=== PATIENT | male | born 1975 | race American Indian/Alaskan Native ===

== ENCOUNTER 2017-12-06 21:22 | Inpatient (IN) | payer BC ==
--- NOTE | 2017-12-06 21:48 | C.PDOC ---
History Of Present Illness The patient presents to the ED requesting alcohol detox. Patient states his last drink was around two hours prior to arrival. He denies suicidal/homicidal ideation and has no other complaints at this time. Time Seen by Provider: 12/06/17 21:48 Chief Complaint (Nursing): Substance Abuse History Per: Patient History/Exam Limitations: intoxication Onset/Duration Of Symptoms: Hrs Current Symptoms Are (Timing): Still Present Suicide/Self Injury Attempted (Context): None Modifying Factor(s): Alcohol Severity: None Pain Scale Rating Of: 0 Associated Symptoms: denies: Suicidal Thoughts, Suicidal Plan Involuntary Hold By: None Recent travel outside of the [place]: No Additional History Per: Patient Past Medical History Reviewed: Historical Data, Nursing Documentation, Vital Signs Vital Signs: Last Vital Signs Temp 97.8 F 12/06/17 21:29 Pulse 104 H 12/06/17 21:29 Resp 18 12/06/17 21:29 BP 161/96 H 12/06/17 21:29 Pulse Ox 98 12/06/17 22:33 - Medical History PMH: HTN Denies: Chronic Kidney Disease Surgical History: No Surg Hx Family History: States: Unknown Family Hx - Social History Hx Alcohol Use: Yes (ONE PT PER DAY) Hx Substance Use: No - Immunization History Hx Tetanus Toxoid Vaccination: No Hx Influenza Vaccination: No Hx Pneumococcal Vaccination: No Review Of Systems Constitutional: Negative for: Fever, Chills Cardiovascular: Negative for: Chest Pain, Orthopnea Respiratory: Negative for: Cough, Shortness of Breath Gastrointestinal: Negative for: Nausea, Vomiting, Abdominal Pain Skin: Negative for: Rash, Lesions, Jaundice, Bruising Neurological: Negative for: Weakness Psych: Positive for: Other (alcohol detox ). Negative for: Suicidal ideation Physical Exam - Physical Exam Appears: Non-toxic, No Acute Distress Skin: Warm, Dry Head: Normacephalic Eye(s): bilateral: Normal Inspection Oral Mucosa: Moist, Other (alcohol on breath ) Neck: Supple Chest: Symmetrical, No Deformity, No Tenderness Cardiovascular: Rhythm Regular, No Murmur Respiratory: No Rales, No Rhonchi, No Wheezing Gastrointestinal/Abdominal: Soft, No Tenderness Back: Normal Inspection Extremity: Normal ROM, Capillary Refill (less than 2 seconds ) Extremity: Bilateral: Atraumatic Neurological/Psych: Oriented x3 Gait: Steady ED Course And Treatment - Laboratory Results Result Diagrams: 12/06/17 22:09 12/06/17 22:09 O2 Sat by Pulse Oximetry: 98 (on RA) Pulse Ox Interpretation: Normal Progress Note: Bloodwork and urinalysis ordered and reviewed. Disposition Discussed With Dr.: Lucita Mcdonough Comment: accepted the pt on her service and took over the care at 12:40 AM Doctor Will See Patient In The: Hospital Counseled Patient/Family Regarding: Studies Performed, Diagnosis - Disposition Disposition: HOSPITALIZED Disposition Time: 21:48 Condition: FAIR Forms: [employer] (Kiswahili) - Clinical Impression Clinical Impression: Alcohol intoxication - Scribe Statement The provider has reviewed the documentation as recorded by the Scribe (Sophie Kim) Provider Attestation: All medical record entries made by the Scribe were at my direction and personally dictated by me. I have reviewed the chart and agree that the record accurately reflects my personal performance of the history, physical exam, medical decision making, and the department course for this patient. I have also personally directed, reviewed, and agree with the discharge instructions and disposition. Decision To Admit - Pt Status Changed To: Hospital Disposition Of: Inpatient - Admit Certification Admit to Inpatient:: After my assessment, the patient will require hospitalization for at least two midnights. This is because of the severity of symptoms shown, intensity of services needed, and/or the medical risk in this patient being treated as an outpatient. - InPatient: Physician Admission Certification: I certify that this patient requires 2 or more midnights of care for the following reason:: After my assessment, the patient will require hospitalization for at least two midnights. This is because of the severity of symptoms shown, intensity of services needed, and/or the medical risk in this patient being treated as an outpatient. - . Bed Request Type: Detox Admitting Physician: Lucita Mcdonough Patient Diagnosis: Alcohol intoxication
[2017-12-06 22:13] LABS: BASO # 0.1 K/uL (0.0-0.2); EOS # 0.2 K/uL (0.0-0.7); EOS % 2.6 % (0.0-4.0); HEMOGLOBIN 15.1 g/dL (12.0-18.0); LYMPH # 3.2 K/uL (1.0-4.3); LYMPH % 37.6 % (20.0-40.0); MEAN CELL VOLUME 88.7 fL (80.0-94.0); MEAN CORPUSCULAR HEMOGLOBIN 30.3 pg (27.0-31.0); MEAN CORPUSCULAR HGB CONC 34.2 g/dL (33.0-37.0); MEAN PLATELET VOLUME 7.9 fL (7.2-11.7); MONO # 0.6 K/uL (0.0-0.8); MONO % 6.9 % (0.0-10.0); NEUT # 4.5 K/uL (1.8-7.0); NEUT % 51.9 % (50.0-75.0); NRBC % 0.1 % (0.0-2.0); RBC 4.99 Mil/uL (4.40-5.90); RED CELL DISTRIBUTION WIDTH 16.2 % (11.5-14.5); WHITE BLOOD COUNT 8.6 K/uL (4.8-10.8)
[2017-12-06 22:25] LABS: ALB/GLOB RATIO 1.2 (1.0-2.1); ALBUMIN 4.2 g/dL (3.5-5.0); ALT/SGPT 96 U/L (21-72); AST/SGOT 79 U/L (17-59); BLOOD UREA NITROGEN 10 mg/dL (9-20); CALCIUM 9.2 mg/dl (8.6-10.4); GFR AFRICAN-AMERICAN > 60; GFR NON-AFRICAN AMERICAN > 60
[2017-12-06 23:13] LABS: URINE BILIRUBIN NEGATIVE (NEGATIVE); URINE CLARITY Clear (Clear); URINE COLOR Straw (YELLOW); URINE GLUCOSE (UA) NORMAL (Normal); URINE LEUKOCYTE ESTERASE NEG Leu/uL (Negative); URINE PROTEIN 1+ mg/dL (NEGATIVE); URINE UROBILINOGEN NORMAL mg/dL (0.2-1.0)
[2017-12-06 23:18] LABS: URINE BLOOD NEGATIVE (NEGATIVE)
[2017-12-06 23:24] LABS: BARBITURATES, UR NEGATIVE (NEGATIVE); OPIATES, UR NEGATIVE (NEGATIVE); PHENCYCLIDINE, UR NEGATIVE (NEGATIVE)
[2017-12-06 23:25] LABS: BENZODIAZEPINES, UR POSITIVE (NEGATIVE)
--- NOTE | 2017-12-07 01:08 | PCM.BM ---
<Juliet Brizuela M - Last Filed: 12/07/17 01:07> Treatment Plan Problems - Problems identified on initial assessmt Ineffective Coping Skills Date Initiated: 12/07/17 Time Initiated: 01:07 Assessment reference: NA Status: Active Treatment assets and liabiliti Patient Assests: ADL independent Patient Liabilities: substance abuse - Milieu Protocol Maintain good personal hygiene: daily Encourage regular showers, daily Remind patient to perform daily oral care, other Assist patient to perform ADL's Maintain personal safety: every shift Educate patient to report safety concerns to staff, every shift Monitor environment for contraband/sharps Medication safety: Monitor for expected outcome, potential side effects: every shift, Assess barriers to learning: every shift, Assess readiness for medication education: every shift <Yong Neal - Last Filed: 12/08/17 13:06> - Diagnosis (1) Alcohol use disorder, severe, dependence Status: Acute Interventions: 12/08/17 13:06 * Assess 7x/week regarding severity of withdrawal * Educate regarding risks, benefits, side effects and alternatives of medications * Use Motivational Interviewing for abstinence * Use CBT for relapse prevention * Medication management for withdrawal symptoms * Encourage medication assisted treatment *
[2017-12-07] MEDS: Multiple Vitamins Tab PO SCH (10:13)
--- NOTE | 2017-12-07 12:49 | PCM.BM ---
Treatment Plan Problems - Problems identified on initial assessmt Ineffective Coping Skills Date Initiated: 12/07/17 Time Initiated: 01:07 Assessment reference: NA Status: Active Treatment assets and liabiliti Patient Assests: ADL independent Patient Liabilities: substance abuse - Milieu Protocol Maintain good personal hygiene: daily Encourage regular showers, daily Remind patient to perform daily oral care, other Assist patient to perform ADL's Maintain personal safety: every shift Educate patient to report safety concerns to staff, every shift Monitor environment for contraband/sharps Medication safety: Monitor for expected outcome, potential side effects: every shift, Assess barriers to learning: every shift, Assess readiness for medication education: every shift
--- NOTE | 2017-12-07 14:50 | PCM.PSYCH ---
Initial Psychiatric Evaluation - Initial Psychiatric Evaluation Type of Admission: Voluntary Legal Status: Capacity Chief Complaint (in patient's own words): "I want to stop drinking" History of Present Illness and Precipitating Events: Patient is seen, chart reviewed and case discussed. 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 The patient has three children. The patient states he wants to detox from alcohol. The patient began drinking when he was 13 years old, but was only a social drinker until his mid-thirties, when he began to drink 1 pint of Rum per day. This lasted for two years until he went to Detox. He was then sober for ten years until this past month, when he began to have marital troubles. He reports that he has been drinking 1 pint of Rum/ day for the past month. He reports that the longest time he has been sober was for the ten years. The patient denies drug use, but admits to occasionally smoking 5-6 cigarettes/day since his early twenties. Past Psych Hx: Denied Medical Hx: HTN Family Psych Hx: Denied Family Medical Hx: Father had alcohol use disorder Current Medications: Active Medications Generic Name Dose Route Start Last Admin Trade Name Freq PRN Reason Stop Dose Admin Amlodipine Besylate 5 mg 12/07/17 10:00 12/07/17 10:14 Norvasc PO 5 mg DAILY SY Administration Chlordiazepoxide 25 mg 12/07/17 09:45 Librium PO Q4H PRN Alcohol Withdrawal Chlordiazepoxide 25 mg 12/07/17 10:00 12/07/17 10:13 Librium PO 12/11/17 09:59 25 mg Q6H SY Administration Taper Clonidine HCl 0.1 mg 12/07/17 01:10 12/07/17 01:52 Catapres PO 0.1 mg Q6H PRN Administration Withdrawal Symptoms Clonidine HCl 0.1 mg 12/07/17 10:00 12/07/17 13:15 Catapres PO 0.1 mg TID SY Administration Folic Acid 1 mg 12/07/17 10:00 12/07/17 10:13 Folic Acid PO 1 mg DAILY SY Administration Hydrochlorothiazide 25 mg 12/07/17 10:00 12/07/17 10:14 Hydrodiuril PO 25 mg DAILY SY Administration Hydroxyzine HCl 25 mg 12/07/17 01:12 Atarax PO Q6H PRN Agitation Lorazepam 1 mg 12/07/17 01:11 12/07/17 01:52 Ativan PO 1 mg Q6H PRN Administration Alcohol Withdrawal Multivitamins 1 tab 12/07/17 10:00 12/07/17 10:13 Hexavitamin PO 1 tab DAILY SY Administration Thiamine HCl 100 mg 12/07/17 10:00 12/07/17 10:12 Vitamin B1 Tab PO 100 mg DAILY SY Administration Trazodone HCl 50 mg 12/07/17 01:12 Desyrel PO HS PRN Insomnia Past Psychiatric History - Past Psychiatric History Pertinent Medical Hx (Current Medical&Sleep Prob, Allergies): Allergies Allergy/AdvReac Type Severity Reaction Status Date / Time No Known Allergies Allergy Verified 12/06/17 21:39 amLODIPine [Norvasc] 5 mg PO DAILY 12/06/17 cloNIDine [clonidine HCl] 0.2 mg PO DAILY 12/06/17 hydroCHLOROthiazide [Hydrodiuril] 25 mg PO DAILY 12/06/17 Review of Systems - Psychiatric Psychiatric: Anxiety. absent: Hallucinations, Homicidal Ideation, Suicidal Ideation Mental Status Examination - Personal Presentation Personal Presentation: Looks stated age - Affect Affect: Broad - Motor Activity Motor Activity: Calm - Reliability in Providing Information Reliability in Providing Information: Good - Speech Speech: Organized - Mood Mood: Anxious - Formal Thought Process Formal Thought Process: No Impairment - Cognitive Functions Orientation: Person, Place, Situation, Time Sensorium: Alert Attention/Concentration: Attentive Estimate of Intelligence: Average Judgement: Intact, as evidence by: Insight regarding need for hospitalization Memory: Recent intact, as evidence by: Ability to recall events of the day, Remote intact, as evidenced by: Abilit to recall sig. life events - Risk Risk: Diminished functioning - Strength & Assets Inventory Strength & Assets Inventory: Cooperative DSM 5 DX - DSM 5 DSM 5 Diagnosis: Alcohol withdrawal Alcohol use disorder - Recommended/Plan of Treatment Treatment Recommendations and Plan of Treatment: Ativan Taper Gabapentin for augmentation if needed As needed medications All risks, benefits and alternatives of the meds discussed, and the pt agreed and understood. Attend groups and activities Supportive therapy and psychoeducation IN for abstinence CBT for relapse prevention Encourage MAT Refer to rehab or IOP, and self-help groups Smoking cessation with IN Nicotine patch if needed 34 min Projected ELOS: 4-5 days Prognosis: Good with treatment - Smoking Cessation Smoking Cessation Initiated: Yes
[2017-12-08] MEDS: Multiple Vitamins Tab PO SCH (09:04)
[2017-12-08 09:22] VITALS: BP 113/78; PULSE 66; RESP 19; TEMP 97.6; O2SAT 98
--- NOTE | 2017-12-08 10:19 | PCM.PYCHDC ---
Mental Status Examination - Mental Status Examination Orientation: Person, Place, Situation, Time Memory: Intact Mood: Neutral Affect: Constricted Speech: Appropriate Attention: WNL Concentration: WNL Association: WNL Fund of Knowledge: WNL Formal Thought Process: No Impairment Suicidal Ideation: No Current Homicidal Ideation?: No Discharge Summary - Discharge Note Reason for Hospitalization: Alcohol detox Consultations:: List each consultation separately and include: 1. Reason for request. 2. Findings. 3. Follow-up Summary of Hospital Course include:: 1. Description of specific treatment plan utilized for patients during their course of treatmen. 2. Summarize the time- course for resolution of acute symptoms and/or regressed behaviors. 3. Describe issues identified and worked on during hospitalization. 4. Describe medication utilized. 5. Describe medical problems identified and treated. 6. Reassessment of suicide risk Summary of Hospital Course: Patient is seen, chart reviewed and case discussed. 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 The patient has three children. The patient states he wants to detox from alcohol. The patient began drinking when he was 13 years old, but was only a social drinker until his mid-thirties, when he began to drink 1 pint of Rum per day. This lasted for two years until he went to Detox. He was then sober for ten years until this past month, when he began to have marital troubles. He reports that he has been drinking 1 pint of Rum/ day for the past month. He reports that the longest time he has been sober was for the ten years. The patient denies drug use, but admits to occasionally smoking 5-6 cigarettes/day since his early twenties. Past Psych Hx: Denied Medical Hx: HTN Family Psych Hx: Denied Family Medical Hx: Father had alcohol use disorder Hospital course: The pt was admitted and started on treatment with psychotherapy, support, psychoeducation and medications. ND and CBT used. The pt attended few groups and activities, as well as milieu therapy. All the risks and benefits of medications are discussed and the patient understood and agreed. He suddenly asked to leave today AMA. He is made aware of the risks by the news writer and our counselor Chuckie but he did not agree. He said "I've always done 2 -day detoxes, that's enough for me, I'll be alright, I have a job" - Final Diagnosis (DSM 5) Condition upon Discharge: FAIR DSM 5: Alcohol withdrawal Alcohol use disorder, severe Disposition: AGAINST MEDICAL ADVICE Follow-up Treatment Plan: Use relapse prevention skills Return to ER or call 911 if suicidal, homicidal or symptoms relapse. Stay away from stress, alcohol and drugs. See primary doctor regularly and get labs.
== END 2017-12-08 10:30 | disposition left against medical advice (07) | DRG 894 ==
LOC: C.ER 21:22 → C.7D 12-07 00:39
PROVIDERS: ADMIT Psychiatry & Neurology Psychiatry; ATTEND Psychiatry & Neurology Psychiatry
PROC: HZ2ZZZZ Detoxification Services for Substance Abuse Treatment (ICD-10-PCS; principal; 2017-12-07)
DX: F10.230 Alcohol dependence with withdrawal, uncomplicated (principal); F10.220 Alcohol dependence with intoxication, uncomplicated; Y90.7 Blood alcohol level of 200-239 mg/100 ml; F19.10 Other psychoactive substance abuse, uncomplicated; I10 Essential (primary) hypertension; F17.210 Nicotine dependence, cigarettes, uncomplicated

== ENCOUNTER 2018-03-09 18:09 | Inpatient (IN) | payer SELFPAY ==
--- NOTE | 2018-03-09 18:54 | C.PDOC ---
History Of Present Illness 42y male with history of hypertension, comes to ER stating he has been depressed x 7 days and is also requesting detox from alcohol. Patient otherwise denies any suicidal or homicidal ideation. He reports last alcohol use was at 9AM and he drank a pint of Bacardi. Patient has no medical complaints. Time Seen by Provider: 03/09/18 18:31 History Per: Patient History/Exam Limitations: no limitations Modifying Factor(s): Alcohol Associated Symptoms: Depression. denies: Suicidal Thoughts, Suicidal Plan Past Medical History Reviewed: Historical Data, Nursing Documentation, Vital Signs Vital Signs: Last Vital Signs Temp 98.6 F 03/09/18 18:50 Pulse 90 03/09/18 18:50 Resp 18 03/09/18 18:50 BP 151/87 H 03/09/18 18:50 Pulse Ox 98 03/09/18 23:21 - Medical History PMH: HTN Denies: Diabetes, Hepatitis, HIV, Chronic Kidney Disease, Seizures, Sexually Transmitted Disease Surgical History: No Surg Hx - [facility] DETOXIFICATION SERVICES FOR SUBSTANCE ABUSE TREATMENT (12/07/17) Family History: States: Unknown Family Hx - Social History Hx Alcohol Use: Yes Hx Substance Use: Yes - Immunization History Hx Tetanus Toxoid Vaccination: No Hx Influenza Vaccination: No Hx Pneumococcal Vaccination: No Review Of Systems Except As Marked, All Systems Reviewed And Found Negative. Constitutional: Negative for: Fever, Chills Cardiovascular: Negative for: Chest Pain Respiratory: Negative for: Shortness of Breath Gastrointestinal: Negative for: Abdominal Pain Psych: Positive for: Depression. Negative for: Suicidal ideation Physical Exam - Physical Exam Appears: Non-toxic Skin: Normal Color, Warm, Dry Head: Atraumatic, Normacephalic Eye(s): bilateral: Normal Inspection Oral Mucosa: Moist Neck: Normal ROM, Supple Chest: Symmetrical Cardiovascular: Rhythm Regular Respiratory: Normal Breath Sounds Gastrointestinal/Abdominal: Normal Exam, Soft, No Tenderness Back: Normal Inspection Extremity: Normal ROM, No Pedal Edema Neurological/Psych: Oriented x3 ED Course And Treatment - Laboratory Results Result Diagrams: 03/09/18 22:10 03/09/18 22:10 O2 Sat by Pulse Oximetry: 98 (RA) Pulse Ox Interpretation: Normal Medical Decision Making Medical Decision Making: Assessment: Alcohol abuse Plan: 1900 Patient informed there are no detox bed available for today. Crisis to provide patient follow up information for outpatient care. Upon attempt to discharge, patient states he is feeling unsafe. Crisis consult ordered. [id number] - patient to be admitted to [facility] floor s/o Dr. Lynn patient discharged was canceled and patient was admitted. Disposition Discussed With : Gris Lynn Doctor Will See Patient In The: Hospital Counseled Patient/Family Regarding: Studies Performed, Diagnosis - Disposition Disposition: HOSPITALIZED Disposition Time: 22:50 Condition: FAIR - Clinical Impression Clinical Impression: Alcohol abuse, Depression - Scribe Statement The provider has reviewed the documentation as recorded by the Jackson Maurer Provider Attestation: All medical record entries made by the Jackson were at my direction and personally dictated by me. I have reviewed the chart and agree that the record accurately reflects my personal performance of the history, physical exam, medical decision making, and the department course for this patient. I have also personally directed, reviewed, and agree with the discharge instructions and disposition.
[2018-03-09 19:09] VITALS: RESP 18
[2018-03-09 22:22] LABS: BASO % 0.7 % (0.0-2.0); EOS # 0.1 K/uL (0.0-0.7); EOS % 0.8 % (0.0-4.0); HEMOGLOBIN 14.5 g/dL (12.0-18.0); LYMPH # 3.1 K/uL (1.0-4.3); MEAN CORPUSCULAR HEMOGLOBIN 30.5 pg (27.0-31.0); MEAN CORPUSCULAR HGB CONC 33.6 g/dL (33.0-37.0); MEAN PLATELET VOLUME 7.9 fL (7.2-11.7); MONO # 0.3 K/uL (0.0-0.8); MONO % 4.4 % (0.0-10.0); NEUT # 3.5 K/uL (1.8-7.0); NEUT % 50.1 % (50.0-75.0); NRBC % 0.2 % (0.0-2.0); RBC 4.74 Mil/uL (4.40-5.90); RED CELL DISTRIBUTION WIDTH 15.5 % (11.5-14.5); WHITE BLOOD COUNT 7.1 K/uL (4.8-10.8)
[2018-03-09 22:23] LABS: MEAN CELL VOLUME 90.9 fL (80.0-94.0)
[2018-03-09 22:24] LABS: SQUAMOUS EPITHIAL < 1 /hpf (0-5); URINE BACTERIA RARE (<OCC); URINE BILIRUBIN NEGATIVE (NEGATIVE); URINE BLOOD NEGATIVE (NEGATIVE); URINE CLARITY Clear (Clear); URINE COLOR Straw (YELLOW); URINE GLUCOSE (UA) NORMAL (Normal); URINE LEUKOCYTE ESTERASE NEG Leu/uL (Negative); URINE PROTEIN NEGATIVE (NEGATIVE); URINE UROBILINOGEN NORMAL mg/dL (0.2-1.0)
[2018-03-09 22:40] LABS: ALB/GLOB RATIO 1.4 (1.0-2.1); ALBUMIN 4.1 g/dL (3.5-5.0); ALT/SGPT 45 U/L (21-72); AST/SGOT 52 U/L (17-59); BLOOD UREA NITROGEN 10 mg/dL (9-20); CALCIUM 8.7 mg/dl (8.6-10.4); GFR AFRICAN-AMERICAN > 60; GFR NON-AFRICAN AMERICAN > 60
[2018-03-09 22:48] LABS: BARBITURATES, UR NEGATIVE (NEGATIVE); BENZODIAZEPINES, UR NEGATIVE (NEGATIVE); OPIATES, UR NEGATIVE (NEGATIVE); PHENCYCLIDINE, UR NEGATIVE (NEGATIVE)
[2018-03-09 23:48] VITALS: O2SAT 95
--- NOTE | 2018-03-10 00:11 | PCM.BM ---
<John Gautam - Last Filed: 03/10/18 00:08> Treatment Plan Problems - Problems identified on initial assessmt DEPRESSION Date Initiated: 03/10/18 Time Initiated: 00:05 Assessment reference: NA Status: Active ALCOHOL ABUSE Date Initiated: 03/10/18 Time Initiated: 00:05 Assessment reference: NA Status: Active Treatment assets and liabiliti Patient Assests: cooperative, self-reliant, ADL independent, negotiates basic needs Patient Liabilities: financial problems, poor support system, substance abuse, medical problems - Milieu Protocol Maintain good personal hygiene: daily Encourage regular showers, daily Remind patient to perform daily oral care, daily Assist patient to perform ADL's Maintain personal safety: every shift Educate patient to report safety concerns to staff, every shift Monitor environment for contraband/sharps Medication safety: Monitor for expected outcome, potential side effects: every shift, Assess barriers to learning: every shift, Assess readiness for medication education: every shift <Teresita Estrada - Last Filed: 03/10/18 16:56> Family Contact Family involvement: Patient does not wish Family/SO involvement Family contact: Patient declines to allow family contact at present - Goals for Treatment Patient goals for treatment: "I do not know what type of treatment I want at this time." Discharge/Continuing Care - Education Needs Education Needs: Patient Medication, Patient Diagnosis/Disease Process, Patient Coping Skills, Patient Placement options, Patient Community resources - Discharge Discharge Criteria: Free of Suicidal thoughts, Normal sleep pattern, Ability to care for self, No longer exhibiting s/s of withdrawal, Reduction of target symptoms Discharge to:: Other - Treatment Team Participation Discussed with Family/SO: No Was Patient/Family/SO present at Treatment Team Meeting: Yes
[2018-03-10] MEDS: Multiple Vitamins Tab PO SCH (10:01)
--- NOTE | 2018-03-10 10:26 | PCM.PSYCH ---
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 The patient reports previously being hospitalized at [facility] for detox and [facility] for depression. The patient was previously being treated by a therapist in [place] approximately 1 year ago, but due to the therapist passing away the patient is no longer receiving any psychiatric treatment. The patient denies taking any psychotropic medication. Patient states that his severe depression began 7 days ago but does not admit to any triggering event. He denies being anxious but says that his mind is racing. He reports depressed mood, feeling of hopelessness and helplessness. He also reports poor sleep and poor appetite. He admits to drinking 1 pint of Bacardi liquor per day and denies any drug use. He reports withdrawal symptoms including anxiety, headaches, sweating has been smoking cigarettes occasionally since his 30s. He denies A/H or V/H. He slept well through the night but has decreased appetite. PMH: HTN Current Medications: Active Medications Generic Name Dose Route Start Last Admin Trade Name Freq PRN Reason Stop Dose Admin Amlodipine Besylate 5 mg 03/10/18 10:03/10/18 10:02 Norvasc PO 5 mg DAILY SY Administration Chlordiazepoxide 25 mg 03/10/18 00:06 03/10/18 00:18 Librium PO 25 mg Q4H PRN Administration Alcohol Withdrawal Chlordiazepoxide 25 mg 03/10/18 06:00 03/10/18 05:48 Librium PO 03/15/18 05:59 25 mg Q6 SY Administration Taper Clonidine HCl 0.1 mg 03/10/18 00:06 Catapres PO Q4H PRN Symptoms of alcohol withdrawl Folic Acid 1 mg 03/10/18 10:03/10/18 10:01 Folic Acid PO 1 mg DAILY SY Administration Hydrochlorothiazide 25 mg 03/10/18 10:00 03/10/18 10:04 Hydrodiuril PO 25 mg DAILY SY Administration Multivitamins 1 tab 03/10/18 10:00 03/10/18 10:01 Hexavitamin PO 1 tab DAILY SY Administration Pneumococcal Polyvalent Vaccine 0.5 ml 03/11/18 10:00 Pneumovax 23 Vaccine IM 03/11/18 10:01 .ONCE ONE Thiamine HCl 100 mg 03/10/18 10:00 03/10/18 10:02 Vitamin B1 Tab PO 100 mg DAILY SY Administration Trazodone HCl 50 mg 03/10/18 00:06 03/10/18 00:18 Desyrel PO 50 mg HS PRN Administration Insomnia Past Psychiatric History - Past Psychiatric History Previous Treatment History: Inpatient Prior Professional Help: TAMIK[facility]: History of ETOH/Drug Use: Patient admits to drinking 1 pint of liquor per day. Pertinent Medical Hx (Current Medical&Sleep Prob, Allergies): Allergies Allergy/AdvReac Type Severity Reaction Status Date / Time No Known Allergies Allergy Verified 12/06/17 21:39 amLODIPine [Norvasc] 5 mg PO DAILY 12/06/17 cloNIDine [clonidine HCl] 0.2 mg PO DAILY 12/06/17 hydroCHLOROthiazide [Hydrodiuril] 25 mg PO DAILY 12/06/17 Review of Systems - Review of Systems All systems: reviewed and no additional remarkable complaints except - Psychiatric Psychiatric: Anhedonia, Change in Appetite, Depression, Hopelessness. absent: Auditory Hallucinations, Hallucinations, Irritability, Suicidal Ideation, Visual Hallucinations, Tactile Hallucinations Mental Status Examination - Personal Presentation Personal Presentation: Looks stated age - Affect Affect: Constricted - Motor Activity Motor Activity: Psychomotor Retardation - Reliability in Providing Information Reliability in Providing Information: Fair - Speech Speech: Organized - Mood Mood: Depressed, Anxious - Formal Thought Process Formal Thought Process: No Impairment - Obsessions/Compulsions Obsessions: No Compulsions: No - Cognitive Functions Orientation: Person, Place, Situation, Time Sensorium: Alert, Drowsy Attention/Concentration: Attentive, Easily distracted Abstract Thinking: Wittmann Estimate of Intelligence: Below average Judgement: Imparied, as evidence by: Poor judgement, Imparied, as evidence by: Lack of insight into illness - Risk Risk: Suicidal, Withdrawal, Diminished functioning - Strength & Assets Inventory Strength & Assets Inventory: Family support DSM 5 DX - DSM 5 DSM 5 Diagnosis: Major depressive disorder moderate Alcohol use disorder severe Alcohol withdrawal - Recommended/Plan of Treatment Treatment Recommendations and Plan of Treatment: Major depressive disorder moderate CBT Psychoeducation Supportive therapy, group therapy Zoloft 50 mg by mouth daily Trazodone 50 mg by mouth daily at bedtime Neurontin 100 mg PO TID Alcohol use disorder severe Alcohol withdrawal CBT Psychoeducation Supportive therapy, individual therapy Start librium taper MVI/Thiamine/Folic Acid - Smoking Cessation Smoking Cessation Initiated: No
[2018-03-11 06:31] VITALS: BP 127/87; PULSE 77; TEMP 98.3
[2018-03-11] MEDS ORDERED: Pneumococcal 23-Valent Vaccine IM ONE (10:00)
[2018-03-11] MEDS: Multiple Vitamins Tab PO SCH (10:02)
--- NOTE | 2018-03-11 10:59 | PCM.PYCHDC ---
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 The patient reports previously being hospitalized at [facility] for detox and [facility] for depression. The patient was previously being treated by a therapist in [place] approximately 1 year ago, but due to the therapist passing away the patient is no longer receiving any psychiatric treatment. The patient denies taking any psychotropic medication. Patient states that his severe depression began 7 days ago but does not admit to any triggering event. He denies being anxious but says that his mind is racing. He reports depressed mood, feeling of hopelessness and helplessness. He also reports poor sleep and poor appetite. He admits to drinking 1 pint of Bacardi liquor per day and denies any drug use. He reports withdrawal symptoms including anxiety, headaches, sweating has been smoking cigarettes occasionally since his 30s. He denies A/H or V/H. He slept well through the night but has decreased appetite. Consultations:: List each consultation separately and include: 1. Reason for request. 2. Findings. 3. Follow-up Summary of Hospital Course include:: 1. Description of specific treatment plan utilized for patients during their course of treatmen. 2. Summarize the time- course for resolution of acute symptoms and/or regressed behaviors. 3. Describe issues identified and worked on during hospitalization. 4. Describe medication utilized. 5. Describe medical problems identified and treated. 6. 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 The patient reports previously being hospitalized at [facility] for detox and [facility] for depression. The patient was previously being treated by a therapist in [place] approximately 1 year ago, but due to the therapist passing away the patient is no longer receiving any psychiatric treatment. The patient denies taking any psychotropic medication. Patient states that his severe depression began 7 days ago but does not admit to any triggering event. He denies being anxious but says that his mind is racing. He reports depressed mood, feeling of hopelessness and helplessness. He also reports poor sleep and poor appetite. He admits to drinking 1 pint of Bacardi liquor per day and denies any drug use. He reports withdrawal symptoms including anxiety, headaches, sweating has been smoking cigarettes occasionally since his 30s. He denies A/H or V/H. He slept well through the night but has decreased appetite. PMH: HTN - Final Diagnosis (DSM 5) Condition upon Discharge: FAIR Disposition: HOME/ ROUTINE Follow-up Treatment Plan: Major depressive disorder moderate CBT Psychoeducation Supportive therapy, group therapy Zoloft 50 mg by mouth daily Trazodone 50 mg by mouth daily at bedtime Neurontin 100 mg PO TID Alcohol use disorder severe Alcohol withdrawal CBT Psychoeducation Supportive therapy, individual therapy Start librium taper MVI/Thiamine/Folic Acid
== END 2018-03-11 12:10 | disposition home or self-care (01) | DRG 895 ==
LOC: C.ER 18:09 → C.5E 22:47
PROVIDERS: ADMIT Psychiatry & Neurology Psychiatry; ATTEND Psychiatry & Neurology Psychiatry
PROC: HZ2ZZZZ Detoxification Services for Substance Abuse Treatment (ICD-10-PCS; principal; 2018-03-09)
PROC: HZ52ZZZ Individual Psychotherapy for Substance Abuse Treatment, Cognitive-Behavioral (ICD-10-PCS; 2018-03-09)
PROC: HZ59ZZZ Individual Psychotherapy for Substance Abuse Treatment, Supportive (ICD-10-PCS; 2018-03-09)
PROC: HZ56ZZZ Individual Psychotherapy for Substance Abuse Treatment, Psychoeducation (ICD-10-PCS; 2018-03-09)
PROC: HZ42ZZZ Group Counseling for Substance Abuse Treatment, Cognitive-Behavioral (ICD-10-PCS; 2018-03-09)
PROC: HZ46ZZZ Group Counseling for Substance Abuse Treatment, Psychoeducation (ICD-10-PCS; 2018-03-09)
PROC: GZHZZZZ Group Psychotherapy (ICD-10-PCS; 2018-03-09)
PROC: GZ58ZZZ Individual Psychotherapy, Cognitive-Behavioral (ICD-10-PCS; 2018-03-09)
PROC: GZ56ZZZ Individual Psychotherapy, Supportive (ICD-10-PCS; 2018-03-09)
DX: F10.230 Alcohol dependence with withdrawal, uncomplicated (principal); F32.1 Major depressive disorder, single episode, moderate; Y90.8 Blood alcohol level of 240 mg/100 ml or more; F17.210 Nicotine dependence, cigarettes, uncomplicated; I10 Essential (primary) hypertension

== ENCOUNTER 2018-06-30 16:03 | Inpatient (IN) | payer MEDICAID, OTHER ==
[2018-06-30 18:12] LABS: BASO # 0.1 K/uL (0.0-0.2); BASO % 0.8 % (0.0-2.0); EOS # 0.1 K/uL (0.0-0.7); HEMOGLOBIN 13.2 g/dL (12.0-18.0); LYMPH # 1.8 K/uL (1.0-4.3); LYMPH % 27.3 % (20.0-40.0); MEAN CELL VOLUME 95.9 fL (80.0-94.0); MEAN CORPUSCULAR HEMOGLOBIN 31.9 pg (27.0-31.0); MEAN CORPUSCULAR HGB CONC 33.3 g/dL (33.0-37.0); MEAN PLATELET VOLUME 8.1 fL (7.2-11.7); MONO # 0.4 K/uL (0.0-0.8); MONO % 5.6 % (0.0-10.0); NEUT # 4.4 K/uL (1.8-7.0); NEUT % 65.3 % (50.0-75.0); RBC 4.15 Mil/uL (4.40-5.90); RED CELL DISTRIBUTION WIDTH 13.6 % (11.5-14.5); WHITE BLOOD COUNT 6.8 K/uL (4.8-10.8)
[2018-06-30 18:16] LABS: SQUAMOUS EPITHIAL < 1 /hpf (0-5); URINE BILIRUBIN NEGATIVE (NEGATIVE); URINE CLARITY Clear (Clear); URINE COLOR Yellow (YELLOW); URINE GLUCOSE (UA) NORMAL (Normal); URINE LEUKOCYTE ESTERASE NEG Leu/uL (Negative); URINE PROTEIN 1+ mg/dL (NEGATIVE); URINE UROBILINOGEN NORMAL mg/dL (0.2-1.0)
[2018-06-30 18:31] LABS: ALB/GLOB RATIO 1.5 (1.0-2.1); ALBUMIN 4.1 g/dL (3.5-5.0); ALT/SGPT 79 U/L (21-72); AST/SGOT 114 U/L (17-59); BLOOD UREA NITROGEN 13 mg/dL (9-20); CALCIUM 8.9 mg/dl (8.6-10.4); GFR NON-AFRICAN AMERICAN > 60
[2018-06-30 18:37] LABS: URINE BLOOD TRACE (NEGATIVE)
[2018-06-30 18:42] LABS: BARBITURATES, UR NEGATIVE (NEGATIVE); BENZODIAZEPINES, UR NEGATIVE (NEGATIVE); OPIATES, UR NEGATIVE (NEGATIVE); PHENCYCLIDINE, UR NEGATIVE (NEGATIVE)
--- NOTE | 2018-06-30 18:45 | C.PDOC ---
History Of Present Illness 43 year old male, whose past medical history includes HTN and alcohol abuse, presents to the ED for psychiatric evaluation of suicidal ideation. Patient states he recently underwent a divorce and lost his job. He admits he has been d rinking intermittently for 5 months, but his alcohol use worsened over the past 2 weeks. Yesterday, patient had two pints of vodka. He states he has been having suicidal thoughts over the past 4-5 days and plans to jump off of a bridge. Patient denies homicidal ideation, chest pain, shortness of breath, nausea, vomiting. Time Seen by Provider: 06/30/18 16:33 Chief Complaint (Nursing): Psychiatric Evaluation History Per: Patient History/Exam Limitations: no limitations Onset/Duration Of Symptoms: Days Current Symptoms Are (Timing): Still Present Suicide/Self Injury Attempted (Context): None Modifying Factor(s): Alcohol Associated Symptoms: Suicidal Thoughts, Suicidal Plan Involuntary Hold By: None Recent travel outside of the [place]: No Additional History Per: Patient Past Medical History Reviewed: Historical Data, Nursing Documentation, Vital Signs Vital Signs: Last Vital Signs Temp 97.9 F 06/30/18 16:10 Pulse 94 H 06/30/18 16:10 Resp 18 06/30/18 16:10 BP 171/111 H 06/30/18 16:10 Pulse Ox 100 06/30/18 16:10 - Medical History PMH: Depression, HTN Denies: Diabetes, Hepatitis, HIV, Chronic Kidney Disease, Seizures, Sexually Transmitted Disease Surgical History: No Surg Hx - [facility] Procedures DETOXIFICATION SERVICES FOR SUBSTANCE ABUSE TREATMENT (03/09/18) GROUP HORSE BREAKER FOR SUBSTANCE ABUSE TREATMENT, PSYCHOEDUCATION (03/09/18) GROUP HORSE BREAKER FOR SUBSTANCE ABUSE, COGNITIVE BEHAVIORAL (03/09/18) GROUP PSYCHOTHERAPY (03/09/18) INDIV PSYCHOTHERAPY FOR SUBSTANCE ABUSE TREATMENT, SUPPORT (03/09/18) INDIV PSYCHOTHERAPY FOR SUBSTANCE ABUSE, COGNITIV BEHAVIORAL (03/09/18) INDIV PSYCHOTHERAPY FOR SUBSTANCE ABUSE, PSYCHOEDUCATION (03/09/18) INDIVIDUAL PSYCHOTHERAPY, COGNITIVE-BEHAVIORAL (03/09/18) INDIVIDUAL PSYCHOTHERAPY, SUPPORTIVE (03/09/18) Family History: States: Unknown Family Hx - Social History Hx Alcohol Use: Yes Hx Substance Use: No - Immunization History Hx Tetanus Toxoid Vaccination: No Hx Influenza Vaccination: No Hx Pneumococcal Vaccination: No Review Of Systems Cardiovascular: Negative for: Chest Pain Respiratory: Negative for: Shortness of Breath Gastrointestinal: Negative for: Nausea, Vomiting Psych: Positive for: Suicidal ideation Physical Exam - Physical Exam Appears: Non-toxic, No Acute Distress Skin: Normal Color, Warm, Dry Head: Atraumatic, Normacephalic Eye(s): bilateral: Normal Inspection Oral Mucosa: Moist Neck: Supple Chest: Symmetrical, No Deformity, No Tenderness Cardiovascular: Rhythm Regular, No Murmur Respiratory: Normal Breath Sounds, No Rales, No Rhonchi, No Wheezing Extremity: Normal ROM Neurological/Psych: Oriented x3, Normal Speech, Normal Cognition ED Course And Treatment - Laboratory Results Result Diagrams: 06/30/18 18:08 06/30/18 18:08 O2 Sat by Pulse Oximetry: 100 (on RA) Pulse Ox Interpretation: Normal Medical Decision Making Medical Decision Making: Progress: Bloodwork and urinalysis ordered and reviewed. Disposition - Disposition Disposition Time: 19:00 Condition: FAIR Forms: Vquence (Beninese) - Clinical Impression Clinical Impression: Alcohol abuse, Moderate major depression, single episode - Scribe Statement The provider has reviewed the documentation as recorded by the Scribe (Sophie Kim) Provider Attestation: All medical record entries made by the Scribe were at my direction and personally dictated by me. I have reviewed the chart and agree that the record accurately reflects my personal performance of the history, physical exam, medical decision making, and the department course for this patient. I have also personally directed, reviewed, and agree with the discharge instructions and disposition. Physician Patient Turnover Patient Signed Over To: Germain Mojica Handoff Comments: pending labs and disposition
[2018-06-30 20:35] VITALS: O2SAT 98
--- NOTE | 2018-06-30 22:09 | PCM.BM ---
<Gena Porter - Last Filed: 06/30/18 22:09> Treatment Plan Problems - Problems identified on initial assessmt Depression Date Initiated: 06/30/18 Time Initiated: 21:40 Assessment reference: NA Status: Active Treatment assets and liabiliti Patient Assests: cooperative, self-reliant, ADL independent, negotiates basic needs Patient Liabilities: substance abuse (ETOH), medical problems (HYPERTENSION) - Milieu Protocol Maintain good personal hygiene: daily Encourage regular showers, daily Remind pa tient to perform daily oral care, every shift Assist patient to perform ADL's Conduct patient checks and document Observation sheet: Q15 minutes Maintain personal safety: every shift Educate patient to report safety concerns to staff, every shift Monitor environment for contraband/sharps Medication safety: Monitor for expected outcome, potential side effects: every shift, Assess barriers to learning: every shift, Assess readiness for medication education: every shift <Ene Lee - Last Filed: 07/02/18 11:25> Family Contact Family involvement: Famliy/SO not involved - Goals for Treatment Patient goals for treatment: "I need an IOP program." Discharge/Continuing Care - Education Needs Education Needs: Patient Medication, Patient Coping Skills - Discharge Discharge Criteria: Tolerates medication w/o severe side effects, No longer exhibiting s/s of withdrawal Discharge to:: Home, With Family - Treatment Team Participation Discussed with Family/SO: No Was Patient/Family/SO present at Treatment Team Meeting: Yes <Heath Billings - Last Filed: 07/05/18 15:35> - Diagnosis (1) Major depressive disorder, recurrent, moderate Status: Acute Interventions: 07/05/18 15:35 * Assess/adjust medications daily and /or as needed * See patient on an individual basis 7x/week to assess status of hallucinations * Discuss risks, benefits, side effects and alternatives of medications (2) Alcohol use disorder, severe, dependence Status: Acute Interventions: 07/05/18 15:35 * Assess 7x/week regarding severity of withdrawal * Educate regarding risks, benefits, side effects and alternatives of medications * Use Motivational Interviewing for abstinence * Use CBT for relapse prevention * Medication management for withdrawal symptoms * Encourage medication assisted treatment
[2018-07-01] MEDS: Multiple Vitamins Tab PO SCH (10:21)
--- NOTE | 2018-07-01 15:11 | PCM.PSYCH ---
Initial Psychiatric Evaluation - Initial Psychiatric Evaluation Type of Admission: Voluntary Legal Status: Capacity Chief Complaint (in patient's own words): I need help for alcohol and depression. 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 According to patient he has history of depression for last 7 years, got some treatment from [facility] in the past. Now was noncompliant with treatment started feeling depressed. Denied any psychotic, manic or anxiety symptoms. Patient has history of 2 previous psychiatric admissions in the past. Alcohol: Patient started using alcohol at 13 years of age, increased gradually currently he was drinking 1-1/2 pint of Bacardi daily. His last use of alcohol was yesterday. Patient has history of sobriety for 10 years until 6 months ago when he relapsed on alcohol again after . Patient has history of 3 previous detox and 2 rehabs. Patient reported withdrawal symptoms including anxiety, headache, body aches, sweating. Patient denied use of any other drugs including cocaine, cannabis and heroin. He smokes 2 cigarettes daily. Patient was born in [place] and has high school graduation. He is working as a tadeo. He is and has 3 children 22, 21 and 16 years of age. His 16 years old chart lives with her mother. Patient lives with his mother. His height is 5 feet 9 inches and weight is 198 pounds. Current Medications: Active Medications Generic Name Dose Route Start Last Admin Trade Name Freq PRN Reason Stop Dose Admin Amlodipine Besylate 5 mg 06/30/18 22:00 07/01/18 10:21 Norvasc PO 5 mg DAILY SY Administration Chlordiazepoxide 25 mg 06/30/18 22:07 07/01/18 10:21 Librium PO 25 mg Q4H PRN Administration Alcohol withdrawal Chlordiazepoxide 25 mg 07/01/18 06:00 07/01/18 13:58 Librium PO 07/06/18 05:59 Not Given Q6 SY Taper Clonidine HCl 0.1 mg 06/30/18 23:53 Catapres PO Q4H PRN Symptoms of alcohol withdrawl Fluoxetine HCl 20 mg 07/01/18 10:00 07/01/18 10:21 Prozac PO 20 mg DAILY SY Administration Folic Acid 1 mg 07/01/18 10:00 07/01/18 10:21 Folic Acid PO 1 mg DAILY SY Administration Hydrochlorothiazide 25 mg 07/01/18 10:00 07/01/18 10:40 Hydrodiuril PO Not Given DAILY SY Hydroxyzine HCl 50 mg 06/30/18 22:06 06/30/18 22:32 Atarax PO 50 mg Q6H PRN Administration Anxiety Ibuprofen 600 mg 06/30/18 23:57 Motrin Tab PO Q6H PRN Pain, moderate (4-7) Multivitamins 1 tab 07/01/18 10:00 07/01/18 10:21 Hexavitamin PO 1 tab DAILY SY Administration Pneumococcal Polyvalent Vaccine 0.5 ml 07/02/18 22:00 Pneumovax 23 Vaccine IM 07/02/18 22:01 .ONCE ONE Thiamine HCl 100 mg 07/01/18 10:00 07/01/18 10:21 Vitamin B1 Tab PO 100 mg DAILY SY Administration Trazodone HCl 100 mg 06/30/18 23:57 Desyrel PO HS PRN Insomnia Past Psychiatric History - Past Psychiatric History Previous Treatment History: Inpatient History of Abuse: None reported History of ETOH/Drug Use: See HPI History of Family Illness: None reported Pertinent Medical Hx (Current Medical&Sleep Prob, Allergies): Allergies Allergy/AdvReac Type Severity Reaction Status Date / Time No Known Allergies Allergy Verified 12/06/17 21:39 amLODIPine [Norvasc] 5 mg PO DAILY 12/06/17 hydroCHLOROthiazide [Hydrodiuril] 25 mg PO DAILY 12/06/17 Hypertension Review of Systems - Psychiatric Psychiatric: As Per HPI, Anhedonia, Depression Mental Status Examination - Personal Presentation Personal Presentation: Looks stated age - Affect Affect: Depressed - Motor Activity Motor Activity: Calm - Reliability in Providing Information Reliability in Providing Information: Fair - Speech Speech: Organized - Mood Mood: Depressed - Formal Thought Process Formal Thought Process: No Impairment - Hallucinations/Delusions Hallucinations: Other (None reported) Delusions: Other - Obsessions/Compulsions Obsessions: None Compulsions: None - Cognitive Functions Orientation: Person, Place, Situation, Time Sensorium: Alert Attention/Concentration: Attentive Abstract Thinking: [place] Estimate of Intelligence: Average Judgement: Intact, as evidence by: Insight regarding need for hospitalization Memory: Recent intact, as evidence by: Ability to recall events of the day, Remote intact, as evidenced by: Ability to recall historical events - Risk Risk: Withdrawal, Diminished functioning - Strength & Assets Inventory Strength & Assets Inventory: Family support, Employment history, Cooperative - Limitations Limitations: Other (Lives with mother) DSM 5 DX - DSM 5 DSM 5 Diagnosis: Major depressive disorder recurrent moderate Alcohol use disorder severe. - Recommended/Plan of Treatment Treatment Recommendations and Plan of Treatment: Patient education. Supportive therapy. CBT for relapse prevention. [place] for abstinence. We'll start Librium taper for alcohol withdrawal symptoms. We'll start Prozac for depression. We'll start other when necessary medications. Patient is looking for Vivitral shot and also going to [facility] for follow-up care after discharge from the hospital. Projected ELOS: 8-10 days - Smoking Cessation Smoking Cessation Initiated: No
[2018-07-02] MEDS: Multiple Vitamins Tab PO SCH (09:47)
[2018-07-02] MEDS ORDERED: Pneumococcal 23-Valent Vaccine IM ONE (22:00)
--- NOTE | 2018-07-02 23:47 | PCM.PYCHPN ---
Psychiatric Progress Note - Psychiatric Progress Note Patient seen today, length of contact: 15 minutes Patient Chief Complaint: I'm feeling little better but still I'm depressed. Problems Identified/Issues Discussed: Patient seen, chart reviewed, case discussed with the staff. Issues related to illness and treatment were discussed with the patient. Reported compliant with treatment with no blood shortness of breath. Tolerating treatment very well. Patient reported feeling better. Still feels depressed and tired. Patient was awake, alert and oriented x3. Mood reported as depressed. Affect appropriate. Patient was calm and cooperative. Aftercare discussed with the patient. Denied any delusions, auditory or visual hallucinations, suicidal ideations or homicidal ideations at the time of evaluation. Medical Problems: Hypertension Diagnostic Results: Reviewed DSM 5 Symptoms Update: Some improvement with treatment Medication Change: No Medical Record Reviewed: Yes Mental Status Examination - Cognitive Function Orientation: Person, Place, Situation, Time Memory: Intact Attention: WNL Concentration: WNL Association: WNL Fund of Knowledge: [facility] Decription of patient's judgement and insights: Fair - Mood Mood: Depressed - Affect Affect: Depressed - Speech Speech: Appropriate - Formal Thought Process Formal Thought Process: No Impairment Psychotic Thoughts and Behaviors: None - Suicidal Ideation Suicidal Ideation: No - Homicidal Ideation Homicidal Ideation: No Goal/Treatment Plan - Goal/Treatment Plan Need for Continued Stay: Remain at risks for inpatient hospitalization, Discharge may exacerbated symptoms, Severe functional impairment Progress Toward Problem(s) and Goals/Treatment Plan: Some improvement with treatment. Patient education. Supportive therapy. CBT for relapse prevention. [place] for abstinence. Continue treatment as before. Patient wants to go to an [facility] for follow-up care after discharge from the hospital. Estimated Date of D/C: 07/06/18 - Smoking Cessation Smoking Cessation Initiated: No Reason for not providing: Patient refused
[2018-07-03] MEDS: Multiple Vitamins Tab PO SCH (10:27)
--- NOTE | 2018-07-03 19:19 | PCM.PYCHPN ---
Psychiatric Progress Note - Psychiatric Progress Note Patient seen today, length of contact: 15 minutes Patient Chief Complaint: I'm feeling better. Problems Identified/Issues Discussed: Patient seen, chart reviewed, case discussed with the staff. Issues related to illness and treatment were discussed with the patient. Reported compliant with treatment with no blood shortness of breath. Tolerating treatment very well. Patient reported feeling better. Patient was awake, alert and oriented x3. Mood reported as okay. Affect appropriate. Patient was calm and cooperative. Aftercare discussed with the patient. Denied any delusions, auditory or visual hallucinations, suicidal ideations or homicidal ideations at the time of evaluation. Medical Problems: Hypertension Diagnostic Results: Reviewed DSM 5 Symptoms Update: Some improvement with treatment Medication Change: No Medical Record Reviewed: Yes Mental Status Examination - Cognitive Function Orientation: Person, Place, Situation, Time Memory: Intact Attention: WNL Concentration: WNL Association: WN Fund of Knowledge: [facility] Decription of patient's judgement and insights: Fair - Mood Mood: Depressed (Less than before) - Affect Affect: Other (Appropriate) - Speech Speech: Appropriate - Formal Thought Process Formal Thought Process: No Impairment Psychotic Thoughts and Behaviors: None - Suicidal Ideation Suicidal Ideation: No - Homicidal Ideation Homicidal Ideation: No Goal/Treatment Plan - Goal/Treatment Plan Need for Continued Stay: Remain at risks for inpatient hospitalization, Discharge may exacerbated symptoms, Severe functional impairment Progress Toward Problem(s) and Goals/Treatment Plan: Some improvement with treatment. Patient education. Supportive therapy. CBT for relapse prevention. [place] for abstinence. Continue treatment as before. Estimated Date of D/C: 07/06/18 - Smoking Cessation Smoking Cessation Initiated: No Reason for not providing: Patient refused
[2018-07-04] MEDS: Multiple Vitamins Tab PO SCH (09:39)
--- NOTE | 2018-07-04 12:38 | PCM.PYCHPN ---
Psychiatric Progress Note - Psychiatric Progress Note Patient seen today, length of contact: 16 min Patient Chief Complaint: "Not well" Problems Identified/Issues Discussed: The pt is seen, chart reviewed, case discussed with staff. Support and psychoeducation given, CBT and [place] used briefly No new symptoms reported, improving slowly and needs more time No SEs from medications, risks discussed. After care discussed Medication Change: No Medical Record Reviewed: Yes Mental Status Examination - Cognitive Function Orientation: Person, Place, Situation, Time Memory: Intact Attention: WNL Concentration: Poor Association: WNL Fund of Knowledge: WNL - Mood Mood: Depressed, Anxious - Affect Affect: Constricted - Speech Speech: Appropriate - Formal Thought Process Formal Thought Process: No Impairment - Suicidal Ideation Suicidal Ideation: No - Homicidal Ideation Homicidal Ideation: No Goal/Treatment Plan - Goal/Treatment Plan Need for Continued Stay: Discharge may exacerbated symptoms, Severe functional impairment Progress Toward Problem(s) and Goals/Treatment Plan: Continue medications Support and psychoeducation daily Attend groups and activities daily After care planning by ANTONIO
[2018-07-04 14:22] LABS: ALB/GLOB RATIO 1.3 (1.0-2.1); ALT/SGPT 356 U/L (21-72); AST/SGOT 331 U/L (17-59); BLOOD UREA NITROGEN 21 mg/dL (9-20); CALCIUM 9.7 mg/dl (8.6-10.4); GFR NON-AFRICAN AMERICAN > 60
[2018-07-05] MEDS: Multiple Vitamins Tab PO SCH (10:09)
--- NOTE | 2018-07-05 15:52 | PCM.PYCHPN ---
Psychiatric Progress Note - Psychiatric Progress Note Patient seen today, length of contact: 15 minutes Patient Chief Complaint: I'm feeling much better. Problems Identified/Issues Discussed: Patient seen, chart reviewed, case discussed with the staff. Issues related to illness and treatment were discussed with the patient. Reported compliant with treatment with no blood shortness of breath. Tolerating treatment very well. Patient reported feeling much better. Patient's LFTs are elevated. Will discontinue Librium and will start Ativan when necessary every 6 hours for alcohol withdrawal symptoms. We will also call medicine to evaluate the patient. Patient was awake, alert and oriented x3. Mood reported as okay. Affect appropriate. Patient was calm and cooperative. Aftercare discussed with the patient. Denied any delusions, auditory or visual hallucinations, suicidal ideations or homicidal ideations at the time of evaluation. Medical Problems: Hypertension Diagnostic Results: Reviewed DSM 5 Symptoms Update: Improvement with treatment. Medication Change: Yes (Librium discontinued, Ativan started) Medical Record Reviewed: Yes Mental Status Examination - Cognitive Function Orientation: Person, Place, Situation, Time Memory: Intact Attention: WNL Concentration: WNL Association: [facility] Fund of Knowledge: [facility] Decription of patient's judgement and insights: Fair - Mood Mood: Depressed (Much less than before) - Affect Affect: Other (Appropriate) - Speech Speech: Appropriate - Formal Thought Process Formal Thought Process: No Impairment Psychotic Thoughts and Behaviors: None - Suicidal Ideation Suicidal Ideation: No - Homicidal Ideation Homicidal Ideation: No Goal/Treatment Plan - Goal/Treatment Plan Need for Continued Stay: Remain at risks for inpatient hospitalization, Discharge may exacerbated symptoms, Severe functional impairment Progress Toward Problem(s) and Goals/Treatment Plan: Some improvement with treatment. Patient education. Supportive therapy. CBT for relapse prevention. [place] for abstinence. Will discontinue Librium and will start Ativan when necessary every 6 for alcohol withdrawal symptoms. Continue rest of the treatment as before. Estimated Date of D/C: 07/06/18 - Smoking Cessation Smoking Cessation Initiated: No Reason for not providing: Patient refused
--- NOTE | 2018-07-06 03:15 | CP.PCM.CON ---
<Kira Jaramillo - Last Filed: 07/06/18 03:17> History of Present Illness - History of Present Illness History of Present Illness: cc: "elevated transaminases" Mr. Goldsmith is a 43 year old male PMH hypertension, depression, alcohol abuse consulted by psych for elevated transaminases on routine bloodwork. Psych has discontinued Librium in favor of Ativan taper for alcohol detox. Patient has no medical complaints at this time. His last drink was the evening prior to admission, on the . Denies liver history; states latest hepatitis panel earlier this year was negative. Denies headache, shortness of breath, chest pain, nausea, vomiting, constipation, diarrhea. Patient does admit to tremors as he withdraws from alcohol, but his other withdrawal symptoms have subsided. PMH: HTN, depression, alcohol abuse Med: Amlodipine, HCTZ All: NKDA PSxHx: denies FamHx: mother-CHF s/p stent: Dx in 50s SocHx: 2 cig/day, 1-1.5 pint liquor daily, denies illicit drug use Review of Systems - Constitutional Constitutional: absent: Chills, Headache, Night Sweats, Weakness - EENT Eyes: absent: Blurred Vision, Diplopia Ears: absent: Disequilibrium, Dizziness - Cardiovascular Cardiovascular: absent: Chest Pain, Dyspnea - Respiratory Respiratory: absent: Cough, Dyspnea - Gastrointestinal Gastrointestinal: absent: Constipation, Cramping, Diarrhea, Nausea, Vomiting - Neurological Neurological: Tremor Past Patient History - Infectious Disease Hx of Infectious Diseases: None - Past Medical History & Family History Past Medical History?: Yes - Past Social History Smoking Status: Light Smoker < 10 Cigarettes Daily Alcohol: > 2 Drinks/Day Drugs: Denies - CARDIAC Hx Hypertension: Yes - PULMONARY Hx Tuberculosis: No - NEUROLOGICAL Hx Seizures: No - HEENT Hx HEENT Problems: No - RENAL Hx Chronic Kidney Disease: No - ENDOCRINE/METABOLIC Hx Endocrine Disorders: No - HEMATOLOGICAL/ONCOLOGICAL Hx Human Immunodeficiency Virus (HIV): No - INTEGUMENTARY Hx Dermatological Problems: No - MUSCULOSKELETAL/RHEUMATOLOGICAL Hx Musculoskeletal Disorders: No Hx Falls: No (Denied) - GASTROINTESTINAL Hx Gastrointestinal Disorders: No - GENITOURINARY/GYNECOLOGICAL Hx Sexually Transmitted Disorders: No - PSYCHIATRIC Hx Substance Use: Yes - SURGICAL HISTORY Hx Surgeries: No - ANESTHESIA Hx Anesthesia: No Hx Anesthesia Reactions: No Hx Malignant Hyperthermia: No Meds Allergies/Adverse Reactions: Allergies Allergy/AdvReac Type Severity Reaction Status Date / Time No Known Allergies Allergy Verified 12/06/17 21:39 - Medications Medications: Current Medications Amlodipine Besylate (Norvasc) 5 mg PO DAILY [facility] Last Admin: 07/05/18 10:09 Dose: 5 mg Clonidine HCl (Catapres) 0.1 mg PO Q4H PRN PRN Reason: Symptoms of alcohol withdrawl Fluoxetine HCl (Prozac) 20 mg PO DAILY [facility] Last Admin: 07/05/18 10:09 Dose: 20 mg Folic Acid (Folic Acid) 1 mg PO DAILY [facility] Last Admin: 07/05/18 10:09 Dose: 1 mg Hydrochlorothiazide (Hydrodiuril) 25 mg PO DAILY [facility] Last Admin: 07/05/18 10:09 Dose: 25 mg Hydroxyzine HCl (Atarax) 50 mg PO Q6H PRN PRN Reason: Anxiety Last Admin: 07/05/18 22:04 Dose: 50 mg Ibuprofen (Motrin Tab) 600 mg PO Q6H PRN PRN Reason: Pain, moderate (4-7) Lorazepam (Ativan) 1 mg PO Q6 PRN PRN Reason: For alcohol withdrawal symptom Multivitamins (Hexavitamin) 1 tab PO DAILY [facility] Last Admin: 07/05/18 10:09 Dose: 1 tab Thiamine HCl (Vitamin B1 Tab) 100 mg PO DAILY [facility] Last Admin: 07/05/18 10:09 Dose: 100 mg Trazodone HCl (Desyrel) 100 mg PO HS PRN PRN Reason: Insomnia Physical Exam - Constitutional Appears: Well, Non-toxic, No Acute Distress - Head Exam Head Exam: ATRAUMATIC, NORMOCEPHALIC - ENT Exam ENT Exam: Mucous Membranes Moist - Respiratory Exam Respiratory Exam: Clear to Auscultation Bilateral, NORMAL BREATHING PATTERN - Cardiovascular Exam Cardiovascular Exam: REGULAR RHYTHM, +S1, +S2 - GI/Abdominal Exam GI & Abdominal Exam: Distended, Normal Bowel Sounds, Soft. absent: Firm, Gua rding, Rebound, Tenderness Additional comments: hepatic border palpable - Extremities Exam Extremities exam: Positive for: normal capillary refill, pedal pulses present. Negative for: calf tenderness - Neurological Exam Neurological exam: Alert, Oriented x3 - Psychiatric Exam Psychiatric exam: Normal Affect, Normal Mood - Skin Skin Exam: Dry, Intact, Normal Color, Warm Results - Vital Signs Recent Vital Signs: Last Vital Signs Temp 97.6 F 07/05/18 06:45 Pulse 81 07/05/18 16:49 Resp 20 07/05/18 06:45 BP 117/85 07/05/18 16:49 Pulse Ox 98 06/30/18 20:34 - Labs Result Diagrams: 06/30/18 18:08 07/04/18 13:37 Assessment & Plan - Assessment and Plan (Free Text) Assessment: 43yo M admitted for depression and alcohol detox consulted for incidental elevates transaminitis. Plan: Transaminitis - AST/ALT 114/79 on admission, 331/356 on repeat (07/04) - baseline from previous admissions is in the double digits - patient is asymptomatic on interview - Librium has been switched to Ativan taper for alcohol withdrawal - avoid hepatotoxic medications - f/u CBC, CMB, acute hepatitis panel, CPK - f/u US Abdomen limited d/w Dr. Jose Jaramillo PGY-1 - Date & Time Date: 07/05/18 Time: 22:50 <Mohamud Garcia P - Last Filed: 07/06/18 08:48> Meds - Medications Medications: Current Medications Amlodipine Besylate (Norvasc) 5 mg PO DAILY [facility] Last Admin: 07/05/18 10:09 Dose: 5 mg Clonidine HCl (Catapres) 0.1 mg PO Q4H PRN PRN Reason: Symptoms of alcohol withdrawl Fluoxetine HCl (Prozac) 20 mg PO DAILY [facility] Last Admin: 07/05/18 10:09 Dose: 20 mg Folic Acid (Folic Acid) 1 mg PO DAILY [facility] Last Admin: 07/05/18 10:09 Dose: 1 mg Hydrochlorothiazide (Hydrodiuril) 25 mg PO DAILY [facility] Last Admin: 07/05/18 10:09 Dose: 25 mg Hydroxyzine HCl (Atarax) 50 mg PO Q6H PRN PRN Reason: Anxiety Last Admin: 07/05/18 22:04 Dose: 50 mg Ibuprofen (Motrin Tab) 600 mg PO Q6H PRN PRN Reason: Pain, moderate (4-7) Lorazepam (Ativan) 1 mg PO Q6 PRN PRN Reason: For alcohol withdrawal symptom Multivitamins (Hexavitamin) 1 tab PO DAILY [facility] Last Admin: 07/05/18 10:09 Dose: 1 tab Thiamine HCl (Vitamin B1 Tab) 100 mg PO DAILY [facility] Last Admin: 07/05/18 10:09 Dose: 100 mg Trazodone HCl (Desyrel) 100 mg PO HS PRN PRN Reason: Insomnia Results - Vital Signs Recent Vital Signs: Last Vital Signs Temp 98.2 F 07/06/18 06:47 Pulse 64 07/06/18 06:47 Resp 18 07/06/18 06:47 BP 119/76 07/06/18 06:47 Pulse Ox 98 06/30/18 20:34 - Labs Result Diagrams: 07/06/18 07:59 07/06/18 07:59 Labs: Laboratory Results - last 24 hr 07/06/18 07/06/18 07:59 07:59 WBC 5.8 RBC 4.31 L Hgb 13.8 Hct 42.0 MCV 97.3 H MCH 32.1 H MCHC 32.9 L RDW 13.6 Plt Count 137 MPV 9.8 Neut % (Auto) 53.4 Lymph % (Auto) 33.1 [place] % (Auto) 10.5 H Eos % (Auto) 2.4 Baso % (Auto) 0.6 Neut # (Auto) 3.1 Lymph # (Auto) 1.9 [place] # (Auto) 0.6 Eos # (Auto) 0.1 Baso # (Auto) 0.0 Sodium 137 Potassium 4.1 Chloride 102 Carbon Dioxide 27 Anion Gap 11 BUN 16 Creatinine 0.8 Est GFR ( Amer) > 60 Est GFR (Non-Af Amer) > 60 Random Glucose 94 Calcium 9.3 Total Bilirubin 0.3 AST 243 H D ALT 389 H Alkaline Phosphatase 83 Total Creatine Kinase 47 L Total Protein 7.0 Albumin 4.1 Globulin 2.9 Albumin/Globulin Ratio 1.4 Attending/Attestation - Attestation I have personally seen and examined this patient.: Yes I have fully participated in the care of the patient.: Yes I have reviewed all pertinent clinical information: Yes Notes (Text): 07/06/18 08:44 Asked to evaluate for raised LFT, h/o binge alcoholism, depression, rise in lft but only 2 test hence don't know the trend, patient is asymptomatic, meds used are not overtly hepatotoxic, may avoid, NSAIDS, check hepatititis panel, hepatic USG, repeat LFTs to check trend, if patient is ready for discharge the newer med for depression should be check for side effects of hepatitis, or use in hepatic insufficiency, counselled about alcohol cessation.
[2018-07-06 06:48] VITALS: RESP 18
[2018-07-06 08:20] LABS: BASO % 0.6 % (0.0-2.0); EOS # 0.1 K/uL (0.0-0.7); EOS % 2.4 % (0.0-4.0); HEMOGLOBIN 13.8 g/dL (12.0-18.0); LYMPH # 1.9 K/uL (1.0-4.3); LYMPH % 33.1 % (20.0-40.0); MEAN CELL VOLUME 97.3 fL (80.0-94.0); MEAN CORPUSCULAR HEMOGLOBIN 32.1 pg (27.0-31.0); MEAN CORPUSCULAR HGB CONC 32.9 g/dL (33.0-37.0); MEAN PLATELET VOLUME 9.8 fL (7.2-11.7); MONO # 0.6 K/uL (0.0-0.8); MONO % 10.5 % (0.0-10.0); NEUT # 3.1 K/uL (1.8-7.0); NEUT % 53.4 % (50.0-75.0); NRBC % 0.2 % (0.0-2.0); RBC 4.31 Mil/uL (4.40-5.90); RED CELL DISTRIBUTION WIDTH 13.6 % (11.5-14.5); WHITE BLOOD COUNT 5.8 K/uL (4.8-10.8)
[2018-07-06 08:28] LABS: ALB/GLOB RATIO 1.4 (1.0-2.1); ALBUMIN 4.1 g/dL (3.5-5.0); ALT/SGPT 389 U/L (21-72); AST/SGOT 243 U/L (17-59); BLOOD UREA NITROGEN 16 mg/dL (9-20); CALCIUM 9.3 mg/dl (8.6-10.4); GFR NON-AFRICAN AMERICAN > 60
[2018-07-06 08:53] LABS: HEPATITIS B SURFACE AG Negative (NEGATIVE)
[2018-07-06 08:59] LABS: HEPATITIS A IGM NEGATIVE (NEGATIVE); HEPATITIS B CORE AB NEGATIVE (NEGATIVE)
[2018-07-06 09:11] LABS: HEPATITIS C ANTIBODY NEGATIVE (NEGATIVE)
--- NOTE | 2018-07-06 10:19 | US ---
Date of service: 07/06/2018 HISTORY: elevated transaminitis COMPARISON: None. TECHNIQUE: Sonographic evaluation of the right upper quadrant of the abdomen. FINDINGS: LIVER: Measures 20.1 cm in length. Heterogeneous increased echogenicity of the liver parenchyma. No mass. No intrahepatic bile duct dilatation. GALLBLADDER: Unremarkable. No gallstones. COMMON BILE DUCT: Measures 3 mm. No stones. No dilatation. PANCREAS: Unremarkable as visualized. No mass. No ductal dilatation. RIGHT KIDNEY: Measures 11 x 4.2 x 5 cm in length. Normal echogenicity. No calculus, mass, or hydronephrosis. AORTA: No aneurysmal dilatation. IVC: Unremarkable. OTHER FINDINGS: None . IMPRESSION: No evidence of cholelithiasis or cholecystitis. Enlarged liver demonstrate heterogeneous diffuse increased echogenicity suggestive of fibrofatty infiltration.
[2018-07-06] MEDS: Multiple Vitamins Tab PO SCH (11:23)
--- NOTE | 2018-07-06 15:14 | CP.PCM.PN ---
<Mile Noriega - Last Filed: 07/06/18 15:11> Subjective - Date & Time of Evaluation Date of Evaluation: 07/06/18 Time of Evaluation: 11:40 - Subjective Subjective: PGY-1 Medicine Progress Note for Dr. Orourke's service Patient seen and examined at bedside. Patient was seen with morning team to trend LFTs. Patient offers no acute complaints. Patient denies fevers, chills, chest pain, sob, n/v, constipation or diarrhea, dysuria, palpitations, and hallucinations. Objective - Vital Signs/Intake and Output Vital Signs (last 24 hours): Temp Pulse Resp BP Pulse Ox 98.2 F 64 18 119/76 98 07/06/18 06:47 07/06/18 06:47 07/06/18 06:47 07/06/18 06:47 06/30/18 20:34 - Medications Medications: Current Medications Amlodipine Besylate (Norvasc) 5 mg PO DAILY [facility] Last Admin: 07/06/18 11:23 Dose: 5 mg Clonidine HCl (Catapres) 0.1 mg PO Q4H PRN PRN Reason: Symptoms of alcohol withdrawl Fluoxetine HCl (Prozac) 20 mg PO DAILY [facility] Last Admin: 07/06/18 11:23 Dose: 20 mg Folic Acid (Folic Acid) 1 mg PO DAILY [facility] Last Admin: 07/06/18 11:22 Dose: 1 mg Hydrochlorothiazide (Hydrodiuril) 25 mg PO DAILY [facility] Last Admin: 07/06/18 11:38 Dose: Not Given Hydroxyzine HCl (Atarax) 50 mg PO Q6H PRN PRN Reason: Anxiety Last Admin: 07/05/18 22:04 Dose: 50 mg Lorazepam (Ativan) 1 mg PO Q6 PRN PRN Reason: For alcohol withdrawal symptom Multivitamins (Hexavitamin) 1 tab PO DAILY [facility] Last Admin: 07/06/18 11:23 Dose: 1 tab Thiamine HCl (Vitamin B1 Tab) 100 mg PO DAILY [facility] Last Admin: 07/06/18 11:23 Dose: 100 mg Trazodone HCl (Desyrel) 100 mg PO HS PRN PRN Reason: Insomnia - Labs Labs: 07/06/18 07:59 07/06/18 07:59 - Constitutional Appears: Non-toxic, No Acute Distress - Head Exam Head Exam: NORMAL INSPECTION, NORMOCEPHALIC - Eye Exam Eye Exam: EOMI, Normal appearance. absent: Nystagmus, Scleral icterus - ENT Exam ENT Exam: Mucous Membranes Moist - Respiratory Exam Respiratory Exam: Clear to Ausculation Bilateral, NORMAL BREATHING PATTERN. absent: Rales, Rhonchi, Wheezes - Cardiovascular Exam Cardiovascular Exam: REGULAR RHYTHM. absent: +S1, +S2 - GI/Abdominal Exam GI & Abdominal Exam: Soft, Normal Bowel Sounds. absent: Distended, Firm, Guarding, Rigid, Tenderness - Extremities Exam Extremities Exam: Normal Inspection. absent: Calf Tenderness, Pedal Edema - Neurological Exam Neurological Exam: Alert, Awake, Oriented x3 - Psychiatric Exam Psychiatric exam: Normal Affect, Normal Mood - Skin Skin Exam: Intact, Normal Color Assessment and Plan - Assessment and Plan (Free Text) Assessment: 43 yo male admitted to psych units for EtOH use disorder and depression. Medicine consulted for elevated LFTs. Plan: Transaminitis Trending down from previous labwork on 07/04/18 Patient asymptomatic; No jaundice, icterus, abdomen pain Likely 2/2 to Librium side effect; Switched to ativan PGY-1 [facility] Medical Management discussed with Dr. Orourke We will sign off on the patient as LFTs are trending down Please re-consult if needed. We appreciate the consult. Patient can have outpat ient bloodwork to check for repeat LFTs as Librium has an extended half life. <Mekhi Orourke - Last Filed: 07/06/18 15:48> Objective - Vital Signs/Intake and Output Vital Signs (last 24 hours): Temp Pulse Resp BP Pulse Ox 98.2 F 64 18 119/76 98 07/06/18 06:47 07/06/18 06:47 07/06/18 06:47 07/06/18 06:47 06/30/18 20:34 - Medications Medications: Current Medications Amlodipine Besylate (Norvasc) 5 mg PO DAILY [facility] Last Admin: 07/06/18 11:23 Dose: 5 mg Clonidine HCl (Catapres) 0.1 mg PO Q4H PRN PRN Reason: Symptoms of alcohol withdrawl Fluoxetine HCl (Prozac) 20 mg PO DAILY [facility] Last Admin: 07/06/18 11:23 Dose: 20 mg Folic Acid (Folic Acid) 1 mg PO DAILY [facility] Last Admin: 07/06/18 11:22 Dose: 1 mg Hydrochlorothiazide (Hydrodiuril) 25 mg PO DAILY [facility] Last Admin: 07/06/18 11:38 Dose: Not Given Hydroxyzine HCl (Atarax) 50 mg PO Q6H PRN PRN Reason: Anxiety Last Admin: 07/05/18 22:04 Dose: 50 mg Lorazepam (Ativan) 1 mg PO Q6 PRN PRN Reason: For alcohol withdrawal symptom Multivitamins (Hexavitamin) 1 tab PO DAILY [facility] Last Admin: 07/06/18 11:23 Dose: 1 tab Thiamine HCl (Vitamin B1 Tab) 100 mg PO DAILY [facility] Last Admin: 07/06/18 11:23 Dose: 100 mg Trazodone HCl (Desyrel) 100 mg PO HS PRN PRN Reason: Insomnia - Labs Labs: 07/06/18 07:59 07/06/18 07:59 Attending/Attestation - Attestation I have personally seen and examined this patient.: Yes I have fully participated in the care of the patient.: Yes I have reviewed all pertinent clinical information, including history, physical exam and plan: Yes Notes (Text): 07/06/18 15:39 Medical attending: Patient was seen and examined by me - the patient was not in any acute distress when we came and saw him. He was ambulating well and we reviewed the lab work. Hepatitis study was negative. Lulu this is related to his medication and he was changed from libium over to ativan. If the patient wants to he is welcome to follow up at the [facility] clinic when he leaves from the detox unit. thank you Mekhi Orourke
--- NOTE | 2018-07-06 23:29 | PCM.PYCHPN ---
Psychiatric Progress Note - Psychiatric Progress Note Patient seen today, length of contact: 15 minutes Patient Chief Complaint: I'm feeling much better. Problems Identified/Issues Discussed: Patient seen, chart reviewed, case discussed with the staff. Issues related to illness and treatment were discussed with the patient. Reported compliant with treatment with no blood shortness of breath. Tolerating treatment very well. Patient reported feeling much better. Patient's LFTs were elevated. Medical consult was called. After evaluation patient was cleared medically with recommendations to follow-up with medical clinic after discharge from the hospital. Patient was awake, alert and oriented x3. Mood reported as okay. Affect appropriate. Patient was calm and cooperative. Aftercare discussed with the patient. Denied any delusions, auditory or visual hallucinations, suicidal ideations or homicidal ideations at the time of evaluation. Medical Problems: Hypertension Diagnostic Results: Reviewed DSM 5 Symptoms Update: Improved with treatment Medication Change: No Medical Record Reviewed: Yes Consults ordered or reviewed: Reviewed Mental Status Examination - Cognitive Function Orientation: Person, Place, Situation, Time Memory: Intact Attention: WNL Concentration: WNL Association: [facility] Fund of Knowledge: [facility] Decription of patient's judgement and insights: Fair - Mood Mood: Neutral - Affect Affect: Other (Appropriate) - Speech Speech: Appropriate - Formal Thought Process Formal Thought Process: No Impairment Psychotic Thoughts and Behaviors: None - Suicidal Ideation Suicidal Ideation: No - Homicidal Ideation Homicidal Ideation: No Goal/Treatment Plan - Goal/Treatment Plan Need for Continued Stay: Remain at risks for inpatient hospitalization, Discharge may exacerbated symptoms, Severe functional impairment Progress Toward Problem(s) and Goals/Treatment Plan: Some improvement with treatment. Patient education. Supportive therapy. CBT for relapse prevention. [place] for abstinence. Patient was cleared medically. Continue rest of the treatment as before. Estimated Date of D/C: 07/07/18 - Smoking Cessation Smoking Cessation Initiated: No
[2018-07-07 06:26] VITALS: BP 111/79; PULSE 77; TEMP 98.3
--- NOTE | 2018-07-07 12:20 | PCM.PYCHDC ---
Mental Status Examination - Mental Status Examination Orientation: Person, Place, Situation, Time Memory: Intact Mood: Neutral Affect: Other (Appropriate) Speech: Appropriate Attention: WNL Concentration: WNL Association: WNL Fund of Knowledge: WNL Formal Thought Process: No Impairment Description of patient's judgement and insight: Fair Psychotic Thoughts and Behaviors: None Suicidal Ideation: No Current Homicidal Ideation?: No Discharge Summary - Discharge Note Reason for Hospitalization: Major depressive disorder recurrent moderate. Alcohol use disorder severe. Laboratory Data: Reviewed Consultations:: List each consultation separately and include: 1. Reason for request. 2. Findings. 3. Follow-up Consultations: Reviewed Summary of Hospital Course include:: 1. Description of specific treatment plan utilized for patients during their course of treatmen. 2. Summarize the time- course for resolution of acute symptoms and/or regressed behaviors. 3. Describe issues identified and worked on during hospitalization. 4. Describe medication utilized. 5. Describe medical problems identified and treated. 6. 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 According to patient he has history of depression for last 7 years, got some treatment from [facility] in the past. Now was noncompliant with treatment started feeling depressed. Denied any psychotic, manic or anxiety symptoms. Patient has history of 2 previous psychiatric admissions in the past. Alcohol: Patient started using alcohol at 13 years of age, increased gradually currently he was drinking 1-1/2 pint of Bacardi daily. His last use of alcohol was yesterday. Patient has history of sobriety for 10 years until 6 months ago when he relapsed on alcohol again after . Patient has history of 3 previous detox and 2 rehabs. Patient reported withdrawal symptoms including anxiety, headache, body aches, sweating. Patient denied use of any other drugs including cocaine, cannabis and heroin. He smokes 2 cigarettes daily. Patient was born in [place] and has high school graduation. He is working as a tadeo. He is and has 3 children 22, 21 and 16 years of age. His 16 years old chart lives with her mother. Patient lives with his mother. His height is 5 feet 9 inches and weight is 198 pounds. During his stay in the hospital patient was treated with Librium taper for alcohol withdrawal symptoms. Patient was also started on Prozac for depression and other when necessary medications. Patient was doing good. During admission in the hospital, his LFTs increased suddenly. His son the Librium was discontinued and Ativan was started. Patient had no symptoms. Medical consult was called to evaluate the patient. Medical team who evaluated patient. LFTs were becoming back to normal. Other tests were within normal limit. Patient was cleared medically. Today patient was stable, had no withdrawal symptoms, no depression and ready for discharge from the hospital. At the time of evaluation and discharge, patient was awake, alert and oriented 3, had no delusions, no auditory or visual hallucinations, no suicidal ideations or homicidal ideations. Patient was discharged in a stable condition. - Diagnosis (1) Major depressive disorder, recurrent, moderate Status: Acute (2) Alcohol use disorder, severe, dependence Status: Acute - Final Diagnosis (DSM 5) Condition upon Discharge: FAIR Disposition: HOME/ ROUTINE Follow-up Treatment Plan: Patient will go to [facility] for follow-up care after discharge from the hospital. Prescriptions/Medication Reconciliation: FLUoxetine [Prozac] 20 mg PO DAILY #30 cap traZODone [Desyrel] 100 mg PO HS PRN #30 tab PRN Reason: Insomnia - Smoking Cessation Smoking Cessation Medication prescribed: No - Antipsychotic Medications Pt discharged on 2 or more routine antipsychotic medications: No
== END 2018-07-07 10:32 | disposition home or self-care (01) | DRG 751 ==
LOC: C.ER 16:03 → C.9E 19:13 → C.5E 20:26
PROVIDERS: ADMIT Psychiatry & Neurology Psychiatry; ATTEND Psychiatry & Neurology Psychiatry
PROC: GZ3ZZZZ Medication Management (ICD-10-PCS; principal; 2018-06-30)
PROC: HZ89ZZZ Medication Management for Substance Abuse Treatment, Other Replacement Medication (ICD-10-PCS; 2018-06-30)
PROC: GZHZZZZ Group Psychotherapy (ICD-10-PCS; 2018-06-30)
PROC: GZ56ZZZ Individual Psychotherapy, Supportive (ICD-10-PCS; 2018-06-30)
DX: F33.1 Major depressive disorder, recurrent, moderate (principal); R45.851 Suicidal ideations; F10.239 Alcohol dependence with withdrawal, unspecified; F17.210 Nicotine dependence, cigarettes, uncomplicated; I10 Essential (primary) hypertension; F41.9 Anxiety disorder, unspecified; R51 Headache; Y90.6 Blood alcohol level of 120-199 mg/100 ml; R94.5 Abnormal results of liver function studies; T42.4X5A Adverse effect of benzodiazepines, initial encounter; Z91.19 Patient's noncompliance with other medical treatment and regimen; Z82.49 Family history of ischemic heart disease and other diseases of the circulatory system

== ENCOUNTER 2018-10-18 20:19 | Inpatient (IN) | payer MEDICAID ==
[2018-10-18 20:35] VITALS: O2SAT 98
--- NOTE | 2018-10-18 21:47 | C.PDOC ---
History Of Present Illness Patient is a 43 year old male who presents to the ED for alcohol detox. Patient his last drink was "5 months ago". Patient was uncooperative during history and is a poor historian. POOR HISTORIAN "I JUST CAME TO SLEEP AND I WANT DETOX". STATES LAST DRINK "5 MONTHS AGO". UNCOOPERATIVE DURING HISTORY ROS UTO EXAM NONTOXIC HEENT ATRAUM PSYCH +INTOX; NO ACTIVE SI/SA NEURO SLEEPING AWAKE TO LIGHT STIM, NO GROSS FOCAL DEF DEMAINDER NEG Time Seen by Provider: 10/18/18 21:16 Chief Complaint (Nursing): Psychiatric Evaluation History Per: Patient History/Exam Limitations: intoxication Current Symptoms Are (Timing): Still Present Modifying Factor(s): Alcohol Involuntary Hold By: None Recent travel outside of the [place]: No Additional History Per: Patient Past Medical History Reviewed: Historical Data, Nursing Documentation, Vital Signs Vital Signs: Last Vital Signs Temp 98.2 F 10/18/18 20:30 Pulse 105 H 10/18/18 20:30 Resp 22 10/18/18 20:30 BP 119/84 10/18/18 20:30 Pulse Ox 98 10/18/18 20:30 - Medical History PMH: Depression, HTN Denies: Diabetes, Hepatitis, HIV, Chronic Kidney Disease, Seizures, Sexually Transmitted Disease Surgical History: No Surg Hx - [facility] DETOXIFICATION SERVICES FOR SUBSTANCE ABUSE TREATMENT (03/09/18) GROUP LEVERS LACE MACHINE OPERATOR FOR SUBSTANCE ABUSE TREATMENT, PSYCHOEDUCATION (03/09/18) GROUP LEVERS LACE MACHINE OPERATOR FOR SUBSTANCE ABUSE, COGNITIVE BEHAVIORAL (03/09/18) GROUP PSYCHOTHERAPY (06/30/18) INDIV PSYCHOTHERAPY FOR SUBSTANCE ABUSE TREATMENT, SUPPORT (03/09/18) INDIV PSYCHOTHERAPY FOR SUBSTANCE ABUSE, COGNITIV BEHAVIORAL (03/09/18) INDIV PSYCHOTHERAPY FOR SUBSTANCE ABUSE, PSYCHOEDUCATION (03/09/18) INDIVIDUAL PSYCHOTHERAPY, COGNITIVE-BEHAVIORAL (03/09/18) INDIVIDUAL PSYCHOTHERAPY, SUPPORTIVE (06/30/18) MEDICATION MANAGEMENT (06/30/18) MEDS MGMT FOR SUBSTANCE ABUSE TREATMENT, OTH REPL MED (06/30/18) Family History: States: Unknown Family Hx - Social History Hx Alcohol Use: Yes (1.5 pints of vodka a day.) Hx Substance Use: Yes - Immunization History Hx Tetanus Toxoid Vaccination: No Hx Influenza Vaccination: No Hx Pneumococcal Vaccination: No Review Of Systems Review Of Systems: ROS cannot be obtained secondary to pt's inabilty to answer questions. Psych: Positive for: Other (intoxication) Physical Exam - Physical Exam Appears: Non-toxic Head: Atraumatic Neurological/Psych: Other (intoxication, no active SI/SA, sleeping awake to light stim, no gross focal def ) ED Course And Treatment - Laboratory Results Result Diagrams: 10/18/18 22:02 10/18/18 22:02 O2 Sat by Pulse Oximetry: 98 (on RA) Pulse Ox Interpretation: Normal Progress Note: Plan: Labs. Urinalysis Reevaluation Time: 00:16 Reassessment Condition: Improved (MED CLEAR FOR CRISIS) Disposition Counseled Patient/Family Regarding: Studies Performed, Diagnosis - Disposition Disposition: HOSPITALIZED Disposition Time: 00:16 Condition: STABLE Forms: [facility] (South Korean) - POA Present On Arrival: None - Clinical Impression Clinical Impression: Alcohol intoxication, Depression - Scribe Statement The provider has reviewed the documentation as recorded by the Scribluciano Trimble All medical record entries made by the Scribe were at my direction and personally dictated by me. I have reviewed the chart and agree that the record accurately reflects my personal performance of the history, physical exam, medical decision making, and the department course for this patient. I have also personally directed, reviewed, and agree with the discharge instructions and disposition.
[2018-10-18 22:06] LABS: BASO % 0.5 % (0.0-2.0); EOS % 0.6 % (0.0-4.0); HEMOGLOBIN 13.7 g/dL (12.0-18.0); LYMPH % 33.3 % (20.0-40.0); MEAN CORPUSCULAR HEMOGLOBIN 31.1 pg (27.0-31.0); MEAN CORPUSCULAR HGB CONC 32.8 g/dL (33.0-37.0); MONO # 0.5 K/uL (0.0-0.8); MONO % 9.2 % (0.0-10.0); NEUT # 3.3 K/uL (1.8-7.0); NEUT % 56.4 % (50.0-75.0); NRBC % 0.1 % (0.0-2.0); RBC 4.4 Mil/uL (4.40-5.90); RED CELL DISTRIBUTION WIDTH 16.7 % (11.5-14.5); WHITE BLOOD COUNT 5.9 K/uL (4.8-10.8)
[2018-10-18 22:24] LABS: URINE BILIRUBIN NEGATIVE (NEGATIVE); URINE BLOOD 1+ (NEGATIVE); URINE CALCIUM OXALATE CRYSTALS OCC /hpf (<OCC); URINE CLARITY Clear (Clear); URINE COLOR Yellow (YELLOW); URINE GLUCOSE (UA) NORMAL (Normal); URINE LEUKOCYTE ESTERASE NEG Leu/uL (Negative); URINE PROTEIN 1+ mg/dL (NEGATIVE)
[2018-10-18 22:25] LABS: ALB/GLOB RATIO 1.6 (1.0-2.1); ALBUMIN 4.5 g/dL (3.5-5.0); ALT/SGPT 120 U/L (21-72); AST/SGOT 148 U/L (17-59); BLOOD UREA NITROGEN 13 mg/dL (9-20); CALCIUM 8.7 mg/dl (8.6-10.4); GFR NON-AFRICAN AMERICAN > 60
[2018-10-18 22:34] LABS: BARBITURATES, UR NEGATIVE (NEGATIVE); BENZODIAZEPINES, UR POSITIVE (NEGATIVE); OPIATES, UR NEGATIVE (NEGATIVE); PHENCYCLIDINE, UR NEGATIVE (NEGATIVE)
[2018-10-19] MEDS ORDERED: Potassium Chloride 20 mEq/15 ml LIQ UD PO STA (00:38)
--- NOTE | 2018-10-19 03:17 | PCM.BM ---
<John Gautam - Last Filed: 10/19/18 03:14> Treatment Plan Problems - Problems identified on initial assessmt INEFFECTIVE COPING Date Initiated: 10/19/18 Time Initiated: 02:10 Assessment reference: NA Status: Active NON COMPLIANT OF FOLLOW UP CARE Date Initiated: 10/19/18 Time Initiated: 02:10 Assessment reference: NA Status: Active Treatment assets and liabiliti Patient Assests: adapts well, cooperative, educated, self-reliant, ADL independent, physically healthy, good support system, negotiates basic needs Patient Liabilities: financial problems, relationship conflicts, substance abuse - Milieu Protocol Maintain good personal hygiene: daily Encourage regular showers, daily Remind patient to perform daily oral care, daily Assist patient to perform ADL's Conduct patient checks and document Observation sheet: Q15 minutes Maintain personal safety: every shift Educate patient to report safety concerns to staff, every shift Monitor environment for contraband/sharps Medication safety: Monitor for expected outcome, potential side effects: every shift, Assess barriers to learning: every shift, Assess readiness for medication education: every shift <Teresita Estrada - Last Filed: 10/20/18 14:38> Family Contact Family involvement: Patient does not wish Family/SO involvement Family contact: Patient declines to allow family contact at present - Goals for Treatment Patient goals for treatment: "I want to go [facility]." Discharge/Continuing Care - Education Needs Education Needs: Patient Medication, Patient Diagnosis/Disease Process, Patient Coping Skills, Patient Placement options, Patient Community resources - Discharge Discharge Criteria: Free of Suicidal thoughts, Normal sleep pattern, Ability to care for self, No longer exhibiting s/s of withdrawal, Reduction of target symptoms Discharge to:: Home, With Family - Treatment Team Participation Discussed with Family/SO: No Was Patient/Family/SO present at Treatment Team Meeting: Yes
--- NOTE | 2018-10-19 13:25 | PCM.PSYCH ---
Initial Psychiatric Evaluation - Initial Psychiatric Evaluation Type of Admission: Voluntary Legal Status: Capacity Chief Complaint (in patient's own words): "Depressed" History of Present Illness and Precipitating Events: Patient is a 43yo male who lives with his ex-, has three adult children and two (adult/adolescent) step children, and is employed as a tadeo. Patient is here for depression and alcohol use disorder. Patient reports feelings of depression anhedonia, abnormal sleep, difficulty concentrating, irritability, change in appetite and anxiety. Patient denies suicidal/homicidal ideation. Patient denies paranoia and hallucinations. Patient's mother in July. Patient typically drinks 1.5 pints of liquor daily. He smokes 1 pack of cigarettes daily as well. He denies any other drug use. He doesn't report any withdrawal sxs at this point Patient has expressed interest in short term rehab. He has been to detox 4 times previously (last here in 06/2018) and has been to rehab twice previously. Psychiatric history: depression PMH: HTN PSH: denies Family hx: unknown Meds: Zoloft Allergies: NKDA Current Medications: Active Medications Generic Name Dose Route Start Last Admin Trade Name Freq PRN Reason Stop Dose Admin Amlodipine Besylate 5 mg 10/19/18 13:30 Norvasc PO DAILY SY Chlordiazepoxide 25 mg 10/19/18 13:20 Librium PO Q6H PRN Alcohol withdrawal Escitalopram Oxalate 10 mg 10/19/18 13:30 Lexapro PO DAILY SY Gabapentin 300 mg 10/19/18 18:00 Neurontin PO BID SY Hydrochlorothiazide 25 mg 10/19/18 13:30 Hydrodiuril PO DAILY SY Hydroxyzine HCl 50 mg 10/19/18 13:20 Atarax PO Q6H PRN Anxiety Ibuprofen 600 mg 10/19/18 13:20 Motrin Tab PO Q6H PRN Pain, moderate (4-7) Trazodone HCl 100 mg 10/19/18 13:20 Desyrel PO HS PRN Insomnia Past Psychiatric History - Past Psychiatric History Previous Treatment History: Inpatient Pertinent Medical Hx (Current Medical&Sleep Prob, Allergies): Allergies Allergy/AdvReac Type Severity Reaction Status Date / Time No Known Allergies Allergy Verified 10/18/18 20:35 amLODIPine [Norvasc] 5 mg PO DAILY 12/06/17 hydroCHLOROthiazide [Hydrodiuril] 25 mg PO DAILY 12/06/17 FLUoxetine [Prozac] 20 mg PO DAILY #30 cap 07/07/18 traZODone [Desyrel] 100 mg PO HS PRN #30 tab 07/07/18 Review of Systems - Psychiatric Psychiatric: Abnormal Sleep Pattern, Anhedonia, Anxiety, Change in Appetite, Depression, Difficulty Concentrating, Irritability. absent: Homicidal Ideation, Paranoia, Suicidal Ideation Mental Status Examination - Personal Presentation Personal Presentation: Looks stated age - Affect Affect: Constricted - Motor Activity Motor Activity: Calm - Reliability in Providing Information Reliability in Providing Information: Good - Speech Speech: Organized - Mood Mood: Depressed, Anxious - Formal Thought Process Formal Thought Process: No Impairment - Cognitive Functions Orientation: Person, Place, Situation, Time Sensorium: Alert Attention/Concentration: Attentive Estimate of Intelligence: Average Judgement: Intact, as evidence by: Insight regarding need for hospitalization Memory: Recent intact, as evidence by: Ability to recall events of the day, Remote intact, as evidenced by: Abilit to recall sig. life events - Risk Risk: Withdrawal, Diminished functioning - Strength & Assets Inventory Strength & Assets Inventory: Cooperative - Limitations Limitations: Living alone DSM 5 DX - DSM 5 DSM 5 Diagnosis: Major depression, severe, recurrent, non-psychotic Alcohol use d/o - severe - Recommended/Plan of Treatment Treatment Recommendations and Plan of Treatment: Lexapro for depression Gabapentin for alcohol and anxiety prn Librium Start detox if he gets prn's As need medications All risks, benefits and alternatives of the meds discussed, and the pt agreed and understood. Attend groups and activities Individual therapy daily Psychoeducation and support daily Encourage compliance with meds and after care Refer to outpatient program Teach healthy lifestyle methods, i.e. diet, exercise, meditation Smoking cessation and patch if needed 32 min Projected ELOS: 4-5 days Prognosis: good w treatment - Smoking Cessation Smoking Cessation Initiated: Yes
--- NOTE | 2018-10-21 23:30 | PCM.PYCHPN ---
Psychiatric Progress Note - Psychiatric Progress Note Patient seen today, length of contact: 17 min Patient Chief Complaint: "Not good" Problems Identified/Issues Discussed: The pt is seen, chart reviewed, case is discussed with staff. The pt is compliant with medications and reports no side-effects. Symptoms are improving but needs more time to stabilize and to avoid relapse. Pt attends groups and activities. Support given, psycho-education provided. After care discussed. Medication Change: Yes (meds adjusted) Medical Record Reviewed: Yes Mental Status Examination - Cognitive Function Orientation: Person, Place, Situation, Time Memory: Intact Attention: WNL Concentration: WNL Association: WNL Fund of Knowledge: WN - Mood Mood: Depressed, Anxious - Affect Affect: Constricted - Speech Speech: Appropriate - Formal Thought Process Formal Thought Process: No Impairment - Suicidal Ideation Suicidal Ideation: No - Homicidal Ideation Homicidal Ideation: No Goal/Treatment Plan - Goal/Treatment Plan Need for Continued Stay: Discharge may exacerbated symptoms, Severe functional impairment Progress Toward Problem(s) and Goals/Treatment Plan: Lexapro for depression Gabapentin for alcohol and anxiety prn Librium Start detox if he gets prn's As need medications All risks, benefits and alternatives of the meds discussed, and the pt agreed and understood. Attend groups and activities Individual therapy daily Psychoeducation and support daily Encourage compliance with meds and after care Refer to outpatient program Teach healthy lifestyle methods, i.e. diet, exercise, meditation Smoking cessation and patch if needed
--- NOTE | 2018-10-22 14:40 | RAD ---
Date of service: 10/22/2018 HISTORY: Rehab COMPARISON: No prior. TECHNIQUE: Chest PA and lateral FINDINGS: LUNGS: No active pulmonary disease. PLEURA: No significant pleural effusion identified. No pneumothorax apparent. CARDIOVASCULAR: No aortic atherosclerotic calcification present. Normal cardiac size. No pulmonary vascular congestion. OSSEOUS STRUCTURES: No significant abnormalities. VISUALIZED UPPER ABDOMEN: Normal. OTHER FINDINGS: None. IMPRESSION: No active disease.
[2018-10-24 08:14] VITALS: RESP 18
[2018-10-24 16:00] VITALS: PULSE 70
[2018-10-25 06:23] VITALS: TEMP 98.4
[2018-10-25 09:05] VITALS: BP 105/67
--- NOTE | 2018-10-25 10:05 | PCM.PYCHDC ---
Mental Status Examination - Mental Status Examination Orientation: Person, Place, Situation, Time Memory: Intact Mood: Neutral Affect: Constricted Speech: Soft Attention: WNL Concentration: WNL Association: WNL Fund of Knowledge: WNL Formal Thought Process: No Impairment Description of patient's judgement and insight: good, fair Psychotic Thoughts and Behaviors: denies any AVH Suicidal Ideation: No Current Homicidal Ideation?: No Discharge Summary - Discharge Note Reason for Hospitalization: Patient is a 43yo male who lives with his ex-, has three adult children and two (adult/adolescent) step children, and is employed as a tadeo. Patient is here for depression and alcohol use disorder. Patient reports feelings of depression anhedonia, abnormal sleep, difficulty concentrating, irritability, change in appetite and anxiety. Patient denies suicidal/homicidal ideation. Patient denies paranoia and hallucinations. Patient's mother in July. Patient typically drinks 1.5 pints of liquor daily. He smokes 1 pack of cigarettes daily as well. He denies any other drug use. He doesn't report any withdrawal sxs at this point Patient has expressed interest in short term rehab. He has been to detox 4 times previously (last here in 06/2018) and has been to rehab twice previously. - Consultations:: List each consultation separately and include: 1. Reason for request. 2. Findings. 3. Follow-up Summary of Hospital Course include:: 1. Description of specific treatment plan utilized for patients during their course of treatmen. 2. Summarize the time- course for resolution of acute symptoms and/or regressed behaviors. 3. Describe issues identified and worked on during hospitalization. 4. Describe medication utilized. 5. Describe medical problems identified and treated. 6. Reassessment of suicide risk - Final Diagnosis (DSM 5) Condition upon Discharge: STABLE DSM 5: Major depression, severe, recurrent, non-psychotic Alcohol use d/o - severe Disposition: HOME/ ROUTINE Prescriptions/Medication Reconciliation: amLODIPine [Norvasc] 5 mg PO DAILY #30 tab Escitalopram [Lexapro] 10 mg PO DAILY #30 tab Gabapentin [Neurontin] 300 mg PO BID #60 cap traZODone [Desyrel] 100 mg PO HS PRN #30 tab PRN Reason: Insomnia - Smoking Cessation Smoking Cessation Medication prescribed: No - Antipsychotic Medications Pt discharged on 2 or more routine antipsychotic medications: No
--- NOTE | 2018-10-25 10:07 | PCM.PYCHPN ---
Psychiatric Progress Note - Psychiatric Progress Note Patient seen today, length of contact: 15 min Medication Change: Yes (meds adjusted) Medical Record Reviewed: Yes Mental Status Examination - Cognitive Function Orientation: Person, Place, Situation, Time Memory: Intact Attention: WNL Association: WNL Fund of Knowledge: Poor - Mood Mood: Neutral - Affect Affect: Constricted - Speech Speech: Soft - Formal Thought Process Formal Thought Process: No Impairment - Suicidal Ideation Suicidal Ideation: No - Homicidal Ideation Homicidal Ideation: No Goal/Treatment Plan - Goal/Treatment Plan Need for Continued Stay: Discharge may exacerbated symptoms, Severe functional impairment Progress Toward Problem(s) and Goals/Treatment Plan: Major depression, severe, recurrent, non-psychotic Alcohol use d/o - severe
== END 2018-10-25 11:13 | disposition home or self-care (01) | DRG 430 ==
LOC: C.ER 20:19 → C.5E 10-19 00:16
PROVIDERS: ADMIT Psychiatry & Neurology Psychiatry; ATTEND Psychiatry & Neurology Psychiatry
PROC: GZHZZZZ Group Psychotherapy (ICD-10-PCS; principal; 2018-10-19)
PROC: HZ2ZZZZ Detoxification Services for Substance Abuse Treatment (ICD-10-PCS; 2018-10-19)
PROC: HZ52ZZZ Individual Psychotherapy for Substance Abuse Treatment, Cognitive-Behavioral (ICD-10-PCS; 2018-10-19)
PROC: HZ59ZZZ Individual Psychotherapy for Substance Abuse Treatment, Supportive (ICD-10-PCS; 2018-10-19)
PROC: HZ56ZZZ Individual Psychotherapy for Substance Abuse Treatment, Psychoeducation (ICD-10-PCS; 2018-10-19)
PROC: HZ42ZZZ Group Counseling for Substance Abuse Treatment, Cognitive-Behavioral (ICD-10-PCS; 2018-10-19)
PROC: HZ46ZZZ Group Counseling for Substance Abuse Treatment, Psychoeducation (ICD-10-PCS; 2018-10-19)
PROC: GZ58ZZZ Individual Psychotherapy, Cognitive-Behavioral (ICD-10-PCS; 2018-10-19)
PROC: GZ56ZZZ Individual Psychotherapy, Supportive (ICD-10-PCS; 2018-10-19)
DX: F33.2 Major depressive disorder, recurrent severe without psychotic features (principal); F10.230 Alcohol dependence with withdrawal, uncomplicated; F10.220 Alcohol dependence with intoxication, uncomplicated; Y90.8 Blood alcohol level of 240 mg/100 ml or more; I10 Essential (primary) hypertension; F41.9 Anxiety disorder, unspecified; F17.210 Nicotine dependence, cigarettes, uncomplicated

== ENCOUNTER 2018-12-18 15:02 | Emergency (ER) | payer MEDICAID ==
--- NOTE | 2018-12-18 15:24 | C.PDOC ---
History Of Present Illness 43 y/o male, with history of hypertension, depression, and alcoholism, presents to ED complaining of feeling depressed and stating he wants to stop drinking. Patient doesnt admit to suicidal thoughts at this time but states that when hes very depressed, he finds himself near bodies of water. Patient has been in detox in the past and been in a psych sapp for depression. Reports to be in Zoloft but has been noncompliant. Patient has recently lost his brother, got a divorce, and lost his house. Time Seen by Provider: 12/18/18 15:18 Chief Complaint (Nursing): Psychiatric Evaluation History Per: Patient History/Exam Limitations: no limitations Onset/Duration Of Symptoms: Days Current Symptoms Are (Timing): Still Present Past Medical History Reviewed: Historical Data, Nursing Documentation, Vital Signs Vital Signs: Last Vital Signs Temp 98.8 F 12/18/18 15:04 Pulse 102 H 12/18/18 15:04 Resp 20 12/18/18 15:04 BP 153/76 H 12/18/18 15:04 Pulse Ox 98 12/18/18 15:04 Primary Care Provider: FAMILY PROVIDER,NO - Medical History PMH: Depression, HTN Denies: Diabetes, Hepatitis, HIV, Chronic Kidney Disease, Seizures, Sexually Transmitted Disease - [facility] Procedures DETOXIFICATION SERVICES FOR SUBSTANCE ABUSE TREATMENT (10/19/18) GROUP CHIEF ENGINEER PRODUCTION FOR SUBSTANCE ABUSE TREATMENT, PSYCHOEDUCATION (10/19/18) GROUP CHIEF ENGINEER PRODUCTION FOR SUBSTANCE ABUSE, COGNITIVE BEHAVIORAL (10/19/18) GROUP PSYCHOTHERAPY (10/19/18) INDIV PSYCHOTHERAPY FOR SUBSTANCE ABUSE TREATMENT, SUPPORT (10/19/18) INDIV PSYCHOTHERAPY FOR SUBSTANCE ABUSE, COGNITIV BEHAVIORAL (10/19/18) INDIV PSYCHOTHERAPY FOR SUBSTANCE ABUSE, PSYCHOEDUCATION (10/19/18) INDIVIDUAL PSYCHOTHERAPY, COGNITIVE-BEHAVIORAL (10/19/18) INDIVIDUAL PSYCHOTHERAPY, SUPPORTIVE (10/19/18) MEDICATION MANAGEMENT (06/30/18) MEDS MGMT FOR SUBSTANCE ABUSE TREATMENT, OTH REPL MED (06/30/18) Family History: States: No Known Family Hx - Social History Hx Alcohol Use: Yes Hx Substance Use: No - Immunization History Hx Tetanus Toxoid Vaccination: No Hx Influenza Vaccination: No Hx Pneumococcal Vaccination: No Review Of Systems Except As Marked, All Systems Reviewed And Found Negative. Constitutional: Negative for: Fever, Chills Psych: Positive for: Depression. Negative for: Suicidal ideation Physical Exam - Physical Exam Appears: Non-toxic, No Acute Distress, Other (cooperative, pleasant, polite) Skin: Warm, Dry Head: Normacephalic Eye(s): bilateral: Normal Inspection Oral Mucosa: Moist, Other (alcohol on breath) Neck: Supple Cardiovascular: Rhythm Regular, No Murmur Gastrointestinal/Abdominal: Soft, No Tenderness Extremity: Bilateral: Atraumatic, Normal ROM Neurological/Psych: Oriented x3, Normal Speech Gait: Steady ED Course And Treatment - Laboratory Results Result Diagrams: 12/18/18 16:07 12/18/18 16:07 ECG: Interpreted By Me, Viewed By Me ECG Rhythm: Sinus Rhythm Interpretation Of ECG: No ST elevations or depressions. Rate From EC O2 Sat by Pulse Oximetry: 98 (RA) Pulse Ox Interpretation: Normal - Radiology CXR: Interpreted by Me CXR Interpretation: Yes: Other (no acute pulmonary findings) Medical Decision Making Medical Decision Making: Plan: --Labs --UA Pending evaluation by crisis. Medically cleared for further eval Disposition - Disposition Disposition Time: 18:45 Condition: GUARDED Instructions: Depression Forms: [employer] ([place]) - POA Present On Arrival: None - Clinical Impression Clinical Impression: Depression - Scribe Statement The provider has reviewed the documentation as recorded by the Scribe Pari Boateng Provider Attestation: All medical record entries made by the Scribe were at my direction and personally dictated by me. I have reviewed the chart and agree that the record accurately reflects my personal performance of the history, physical exam, medical decision making, and the department course for this patient. I have also personally directed, reviewed, and agree with the discharge instructions and disposition. Physician Patient Turnover Patient Signed Over To: Quincy Allen Handoff Comments: pending final dispo by crisis
[2018-12-18 16:12] LABS: BASO % 0.7 % (0.0-2.0); EOS % 0.8 % (0.0-4.0); HEMOGLOBIN 13.8 g/dL (12.0-18.0); LYMPH # 2.4 K/uL (1.0-4.3); LYMPH % 39.5 % (20.0-40.0); MEAN CELL VOLUME 92.3 fL (80.0-94.0); MEAN CORPUSCULAR HEMOGLOBIN 30.4 pg (27.0-31.0); MEAN CORPUSCULAR HGB CONC 32.9 g/dL (33.0-37.0); MEAN PLATELET VOLUME 7.8 fL (7.2-11.7); MONO # 0.4 K/uL (0.0-0.8); MONO % 6.6 % (0.0-10.0); NEUT # 3.2 K/uL (1.8-7.0); NEUT % 52.4 % (50.0-75.0); RBC 4.56 Mil/uL (4.40-5.90); RED CELL DISTRIBUTION WIDTH 14.1 % (11.5-14.5); WHITE BLOOD COUNT 6.1 K/uL (4.8-10.8)
[2018-12-18 16:13] LABS: URINE BILIRUBIN NEGATIVE (NEGATIVE); URINE BLOOD 1+ (NEGATIVE); URINE CLARITY Clear (Clear); URINE COLOR Yellow (YELLOW); URINE GLUCOSE (UA) NORMAL (Normal); URINE LEUKOCYTE ESTERASE NEG Leu/uL (Negative); URINE PROTEIN 1+ mg/dL (NEGATIVE); URINE UROBILINOGEN NORMAL mg/dL (0.2-1.0)
[2018-12-18 16:23] LABS: ALB/GLOB RATIO 1.5 (1.0-2.1); ALBUMIN 4.4 g/dL (3.5-5.0); ALT/SGPT 122 U/L (21-72); AST/SGOT 83 U/L (17-59); BLOOD UREA NITROGEN 13 mg/dL (9-20); CALCIUM 9.1 mg/dl (8.6-10.4); GFR NON-AFRICAN AMERICAN > 60
[2018-12-18 16:30] LABS: BARBITURATES, UR NEGATIVE (NEGATIVE); OPIATES, UR NEGATIVE (NEGATIVE); PHENCYCLIDINE, UR NEGATIVE (NEGATIVE)
[2018-12-18 16:31] LABS: BENZODIAZEPINES, UR NEGATIVE (NEGATIVE)
[2018-12-18 19:00] VITALS: BP 151/88; PULSE 96; RESP 18; TEMP 98.2; O2SAT 100
--- NOTE | 2018-12-19 15:40 | RAD ---
Date of service: 12/18/2018 HISTORY: Possible transfer COMPARISON: None available. TECHNIQUE: 1 view obtained. FINDINGS: LUNGS: No active pulmonary disease. PLEURA: No significant pleural effusion identified, no pneumothorax apparent. CARDIOVASCULAR: No aortic atherosclerotic calcification present. Normal cardiac size. No pulmonary vascular congestion. OSSEOUS STRUCTURES: No significant abnormalities. VISUALIZED UPPER ABDOMEN: Normal. OTHER FINDINGS: None. IMPRESSION: No active disease.
--- NOTE | 2018-12-20 13:32 | CARD ---
APPROVED REPORT Date of service: 12/18/2018 EKG Measurement Heart [id number] <Conclusion> Normal sinus rhythm possible lvh.
== END 2018-12-18 19:53 | disposition home or self-care (01) ==
LOC: C.ER 15:02
DX: F32.9 Major depressive disorder, single episode, unspecified (principal); I10 Essential (primary) hypertension